=== PATIENT | female | born 1930 | race Caucasian/White ===

== ENCOUNTER 2016-12-07 19:23 | Emergency (ER) | payer MEDICARE, OTHER ==
[~2016-12-07] VITALS: Ht 160 cm; Wt 66.2 kg
[~2016-12-07 19:23] MED LIST: ALPR0.5T PO; LEVO75TA5 PO; LIOT5TAB3 PO; LOSA100T6 PO
[2016-12-07 20:35] LABS: BASO % 1 % (0-3); EOS % 1 % (0-3); HEMATOCRIT 36.2 % (36.0-47.0); HEMOGLOBIN 12.2 g/dL (12.0-15.5); LYMPH # 1.6 x10^3/uL (1.0-4.8); LYMPH % 24 % (24-48); MEAN CORPUSCULAR HEMOGLOBIN 29 pg (25-35); MEAN CORPUSCULAR HGB CONC 34 g/dL (31-37); MEAN CORPUSCULAR VOLUME 85 fL (79-100); MONO % 7 % (0-9); NEUT % 67 % (31-73); PLATELET COUNT 237 x10^3/uL (140-400); RED BLOOD COUNT 4.27 x10^6/uL (3.50-5.40); RED CELL DISTRIBUTION WIDTH 13.7 % (11.5-14.5); WHITE BLOOD COUNT 6.8 x10^3/uL (4.0-11.0)
--- NOTE | 2016-12-07 20:35 | PHYS DOC ---
Past Medical History Past Medical History: Arthritis, Cancer, DVT, Hypertension, Hypothyroid, Other Additional Past Medical Histor: non-hodgkins lymphoma; shingles Past Surgical History: Knee Replacement, Tonsillectomy, Other Additional Past Surgical Histo: thyroidectomy; IVC filter; back; L KNEE REPLACEMENT Alcohol Use: None Drug Use: None Adult General Chief Complaint Chief Complaint: WEAKNESS/GENERALIZED HPI HPI 78-year-old female presenting to the emergency department today with a cough for the past 3-4 weeks generalized fatigue. She denies fever or chills. She also complains of generalized weakness and lightheadedness. Location lungs. Duration intermittent. No alleviating factors. She denies polyuria dysuria confusion cyanosis. She reports a white thick sputum production. She has a history of DVT status post IVC filter placement. She also has a history of non- Hodgkin's lymphoma. Review of systems is negative for chest pain abdominal pain nausea vomiting diaphoresis. All other review of systems is negative unless otherwise noted in history of present illness. Review of Systems Review of Systems SEE ABOVE. Allergies Allergies Allergies Coded Allergies Type Severity Reaction Last Updated Verified niacin Allergy Intermediate 11/04/15 Yes Physical Exam Physical Exam Constitutional: Well developed, well nourished, no acute distress, non-toxic appearance. HENT: Normocephalic, atraumatic, bilateral external ears normal, oropharynx moist, no oral exudates, nose normal. [] Eyes: PERRLA, EOMI, conjunctiva normal, no discharge. [] Neck: Normal range of motion, no tenderness, supple, no stridor. Cardiovascular:Heart rate regular rhythm, no murmur [] Lungs & Thorax: Bilateral breath sounds clear to auscultation Abdomen: Bowel sounds normal, soft, no tenderness, no masses, no pulsatile masses. [] Skin: Warm, dry, no erythema, no rash. [] Back: No tenderness, no CVA tenderness. Extremities: No tenderness, no cyanosis, no clubbing, ROM intact, no edema. [] Neurologic: Alert and oriented X 3, normal motor function, normal sensory function, no focal deficits noted. Psychologic: Affect normal, judgement normal, mood normal. [] Current Patient Data Vital Signs Vital Signs Date Time Temp Pulse Resp B/P (MAP) Pulse Ox O2 Delivery O2 Flow Rate FiO2 12/07/16 19:40 98.3 83 18 153/74 (100) 93 Room Air 98.3 EKG EKG [] Radiology/Procedures Radiology/Procedures [] Course & Med Decision Making Course & Med Decision Making Pertinent Labs and Imaging studies reviewed. (See chart for details) [] 86-year-old female presenting to the emergency department today with generalized fatigue and weakness and cough. Vital signs afebrile, normal heart rate. Saturating 93% on room air. She was saturating 95% during my examination on room air. EKG and chest x-ray ordered along with blood work. No this had come back prior to the patient being signed out to Dr. Merritt at 9 PM. Plan to follow-up on labs EKG chest x-ray and reevaluate the patient. Dragon Disclaimer Dragon Disclaimer This electronic medical record was generated, in whole or in part, using a voice recognition dictation system. Departure Departure Impression: Primary Impression: Cough Referrals: EVY SMITH MD (PCP) SOTERO JAMES MD December 07, 2016 20:35
[2016-12-07 20:37] LABS: BILIRUBIN,URINE NEGATIVE (NEG); GLUCOSE,URINE NEGATIVE (NEG); NITRITE,URINE NEGATIVE (NEG); PH,URINE 6.5; PROTEIN,URINE NEGATIVE (NEG-TRACE); UROBILINOGEN,URINE 0.2 mg/dL (0.2 mg/dL)
[2016-12-07 20:44] LABS: BACTERIA,URINE 0 /HPF (0-FEW); RBC,URINE OCC /HPF (0-2); SQUAMOUS EPITHELIAL CELL,UR OCC /LPF; WBC,URINE 0 /HPF (0-4)
[2016-12-07 20:49] LABS: CALCIUM 8.7 mg/dL (8.5-10.1); CREATININE 0.8 mg/dL (0.6-1.0); GFR 67.7; POTASSIUM 4.2 mmol/L (3.5-5.1)
[2016-12-07 20:55] LABS: ALBUMIN 3.8 g/dL (3.4-5.0); DIRECT BILIRUBIN 0.1 mg/dL (0.0-0.2); TOTAL BILIRUBIN 0.4 mg/dL (0.2-1.0); TOTAL PROTEIN 6.9 g/dL (6.4-8.2)
[2016-12-07 21:30] VITALS: BP 159/74
--- NOTE | 2016-12-08 07:45 | RAD ---
Indication weakness. Shortness of breath. A single view of the chest was obtained and is compared to an examination 13 months earlier. Heart size and pulmonary vessels are within normal limits. A focal infiltrate in either lung is not seen. Significant pleural fluid is not present and there is no pneumothorax. Overall there has not been a significant change when compared to the previous exam. Advanced degenerative changes about both shoulders are noted, similar. IMPRESSION: No acute finding. No significant change
== END 2016-12-07 22:06 | disposition home or self-care (01) ==
LOC: ER 19:23
DX: R05 Cough (principal); R53.1 Weakness; M19.90 Unspecified osteoarthritis, unspecified site; E03.9 Hypothyroidism, unspecified; I10 Essential (primary) hypertension; Z86.718 Personal history of other venous thrombosis and embolism; Z88.1 Allergy status to other antibiotic agents
CPT/HCPCS: 36415; 71010; 80048; 80076; 81001; 83605; 83690; 83880; 84484; 85027; 99285-25

== ENCOUNTER 2017-04-16 11:02 | Inpatient (IN) | payer MEDICARE, OTHER ==
[~2017-04-16] VITALS: Ht 160 cm; Wt 66.2 kg
[2017-04-16] MEDS ORDERED: fentaNYL PF VIAL 100 MCG/2 ML VIAL IV ONE (11:30)
--- NOTE | 2017-04-16 11:37 | PHYS DOC ---
Past Medical History Past Medical History: Arthritis, Cancer, DVT, Hypertension, Hypothyroid, Other Additional Past Medical Histor: non-hodgkins lymphoma; shingles Past Surgical History: Knee Replacement, Tonsillectomy, Other Additional Past Surgical Histo: thyroidectomy; IVC filter; back; L KNEE REPLACEMENT Alcohol Use: None Drug Use: None Adult General Chief Complaint Chief Complaint: MECHANICAL FALL HPI HPI Patient is a 86 year old female who presents with left shoulder pain after stumbling backwards and falling. She was walking with her walker when it occurred. She denies hitting her head or having loss of consciousness. Her pain is localized to the left shoulder. Denies blood thinners. no n/v/blurry vision or headache. Denies back pain, pt was ambulatory after fall without difficulty. Review of Systems Review of Systems Constitutional: Denies fever or chills [] Eyes: Denies change in visual acuity, redness, or eye pain [] HENT: Denies nasal congestion or sore throat [] Respiratory: Denies cough or shortness of breath [] Cardiovascular: denies chest pain GI: Denies abdominal pain, nausea, vomiting, bloody stools or diarrhea [] : Denies dysuria or hematuria [] Musculoskeletal: Denies back pain , reports left upper extremity pain Integument: Denies rash or skin lesions [] Neurologic: Denies headache, focal weakness or sensory changes [] ] Current Medications Current Medications Current Medications Medications (Trade) Dose Ordered Sig/Silvano Start Time Stop Time Status Last Admin Dose Admin Fentanyl Citrate (Fentanyl 2ml Vial) 50 mcg 1X ONCE 04/16/17 11:30 04/16/17 11:31 DC 04/16/17 11:40 50 MCG Physical Exam Physical Exam Constitutional: Well developed, well nourished, no acute distress, non-toxic appearance. elderly, pleasant HENT: Normocephalic, atraumatic, bilateral external ears normal, oropharynx moist, no oral exudates, nose normal. [] Eyes: PERRLA, EOMI, conjunctiva normal, no discharge. [] Neck: Normal range of motion, no tenderness, supple, no stridor. [] Cardiovascular:Heart rate regular with regular rhythm, no murmur [] Lungs & Thorax: Bilateral breath sounds clear to auscultation, no wheeze or crackles Abdomen: Bowel sounds normal, soft, no tenderness, no masses, no pulsatile masses. [] Skin: Warm, dry, no erythema, no rash. [] Back: No midline stepoffs or tenderness, no CVA tenderness. [] Extremities: LUE with deformity of the shoulder with swelling overlying humerus and generalized proximal ttp of the upper arm. Deltoid sensory intact, no ttp of the elbow, limited ROM 2/2 to pain, radial pulse intact and FROM of the hand with normal distal sensory. No tenting of the skin, which is completely intact. Remaining extremities nontender/nondeformed. Neurologic: Alert and oriented X 3, normal motor function, normal sensory function, no focal deficits noted. [] Psychologic: Affect normal, judgement normal, mood normal. [] Current Patient Data Vital Signs Vital Signs Date Time Temp Pulse Resp B/P (MAP) Pulse Ox O2 Delivery O2 Flow Rate FiO2 04/16/17 13:20 97 19 152/74 (100) 96 Room Air 04/16/17 11:04 98.2 98.2 EKG EKG [] Radiology/Procedures Radiology/Procedures []LUE/shoulder XRay: History: Fall, pain There is a spiral fracture of the proximal to mid left humeral shaft. There is considerable lateral displacement of the distal fracture fragment. There are severe degenerative changes at the left shoulder with spurring, a high riding humeral head and periarticular calcifications. These findings appear to be chronic and were also evident on previous chest radiographs. IMPRESSION: 1. Displaced fracture of the proximal to mid left humerus. 2. Severe degenerative change at the left shoulder joint. Course & Med Decision Making Course & Med Decision Making Pertinent Labs and Imaging studies reviewed. (See chart for details) Pt given pain medication after initially declining. Pt's XRay reviewed by me shows significant midshaft humerus fracture with possible anterior dislocation of the shoulder. I discussed with Dr. Penaloza and Dr. Richey, and a CT was ordered. As pt uses a walker to ambulate and won't be able to do so, I proceeded with admission at that time. Prior to CT, did not place pt in sling as she stated she felt comfortable in the current position. I transferred care to Dr. Frederick prior to CT being performed. Pt reports her pain is well controlled. Dragon Disclaimer Dragon Disclaimer This electronic medical record was generated, in whole or in part, using a voice recognition dictation system. Departure Departure Impression: Primary Impression: Humerus fracture Disposition: ADMITTED INPATIENT Admitting Physician: Brad Frederick Condition: IMPROVED Referrals: EVY SMITH MD (PCP) JESSICA MCGARRY MD Apr 16, 2017 11:37
--- NOTE | 2017-04-16 11:50 | RAD ---
Left shoulder, 3 views, 04/16/2017: History: Fall, pain There is a spiral fracture of the proximal to mid left humeral shaft. There is considerable lateral displacement of the distal fracture fragment. There are severe degenerative changes at the left shoulder with spurring, a high riding humeral head and periarticular calcifications. These findings appear to be chronic and were also evident on previous chest radiographs. IMPRESSION: 1. Displaced fracture of the proximal to mid left humerus. 2. Severe degenerative change at the left shoulder joint.
[2017-04-16] MEDS ORDERED: MORPHINE SULFATE 4 MG/ML DISP.SYRIN. IV ONE (13:45)
[2017-04-16 14:01] LABS: BASO % 1 % (0-3); EOS % 0 % (0-3); HEMATOCRIT 33.7 % (36.0-47.0); HEMOGLOBIN 11.5 g/dL (12.0-15.5); LYMPH # 0.6 x10^3/uL (1.0-4.8); LYMPH % 8 % (24-48); MEAN CORPUSCULAR HEMOGLOBIN 29 pg (25-35); MEAN CORPUSCULAR HGB CONC 34 g/dL (31-37); MEAN CORPUSCULAR VOLUME 84 fL (79-100); MONO % 5 % (0-9); NEUT % 86 % (31-73); PLATELET COUNT 217 x10^3/uL (140-400); RED BLOOD COUNT 3.99 x10^6/uL (3.50-5.40); RED CELL DISTRIBUTION WIDTH 13.9 % (11.5-14.5); WHITE BLOOD COUNT 7.5 x10^3/uL (4.0-11.0)
[2017-04-16 14:10] LABS: CALCIUM 8.8 mg/dL (8.5-10.1); CREATININE 0.5 mg/dL (0.6-1.0); GFR 116.4; POTASSIUM 3.7 mmol/L (3.5-5.1)
[2017-04-16 14:16] LABS: ALBUMIN 3.6 g/dL (3.4-5.0); ALBUMIN/GLOBULIN RATIO 1.2 (1.0-1.7); TOTAL BILIRUBIN 0.5 mg/dL (0.2-1.0); TOTAL PROTEIN 6.6 g/dL (6.4-8.2)
--- NOTE | 2017-04-16 14:51 | RAD ---
CT left shoulder Indication: Injury with abnormal joint. Technique: CT of the left shoulder without IV contrast with multiplanar reformats. Comparison: Plain film from the same day Findings: There is complete laterally angulated fracture of the mid left humeral diaphysis with overlapping fracture fragments. Nondisplaced fracture is seen through the proximal fracture fragment extending to the metaphysis. There is severe flattening of the humeral head and glenoid fossa with subchondral sclerosis and cyst formation. There is superior subluxation of the humeral head with remodeling of the acromion. Resumption of the distal left clavicle noted. Suggestion of type 3 acromion. There is severe atrophy of the rotator cuff muscles. Thickening of the joint capsule with scattered calcifications. Inflammatory changes is seen in the soft tissues at the fracture site. Visualized lungs are clear. Heart is normal in size. Coronary artery disease noted. No pericardial or pleural effusion. Aortic arch calcifications noted. 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 No suspicious bony lesions. Multilevel moderate to advanced degenerative disc disease in the spine. Impression: 1. Complete displaced angulated fracture of the mid diaphysis of the left humerus. 2. Second subtle nondisplaced fracture of the proximal humerus extending to the metadiaphysis. 3. Severe degenerative changes in the shoulder joint most likely sequelae of chronic rotator cuff pathology. PQRS Compliance Statement: One or more of the following individualized dose reduction techniques were utilized for this examination: 1. Automated exposure control 2. Adjustment of the mA and/or kV according to patient size 3. Use of iterative reconstruction technique
[2017-04-16 16:45] VITALS: BP 116/80
[2017-04-16] MEDS: MORPHINE SULFATE 4 MG/ML DISP.SYRIN. IV PRN ×2 (16:59→21:52)
--- NOTE | 2017-04-16 17:00 | PDOC1 ---
History and Physical Date of Admission Date of Admission 04/17/17 Identification/Chief Complaint Chief Complaint fall Problems: Source Source: Caregiver, Chart review, Patient History of Present Illness History of Present Illness HPI HPI Patient is a 86 year old female who presents with left shoulder pain after fall today. Pt has bad hearing. her daughter helps for the history. Pt lives alone, independent, using a walker. Today she was ellis, she was not sure if she stumble or now, but fell at the bathroom door on left shoulder, wo lost of consciousness. sent to ER since cannot move left arm with pain. She cannot move left arm much usually with frozen shoulder. no N/V, fever, chills, cough, chest pain. CT : Impression: 1. Complete displaced angulated fracture of the mid diaphysis of the left humerus. 2. Second subtle nondisplaced fracture of the proximal humerus extending to the metadiaphysis. 3. Severe degenerative changes in the shoulder joint most likely sequelae of chronic rotator cuff pathology. Past Medical History Cardiovascular: HTN Endocrine: Hypothyroidism Past Surgical History Past Surgical History: Total knee replacement Social History Smoke: No ALCOHOL: none Drugs: None Current Medications Current Medications Current Medications Medications (Trade) Dose Ordered Sig/Silvano Start Time Stop Time Status Last Admin Dose Admin Fentanyl Citrate (Fentanyl 2ml Vial) 50 mcg 1X ONCE 04/16/17 11:30 04/16/17 11:31 DC 04/16/17 11:40 50 MCG Morphine Sulfate 2 mg PRN Q2HR PRN 04/16/17 14:15 04/17/17 14:14 04/16/17 16:59 2 MG Allergies Allergies Allergies Coded Allergies Type Severity Reaction Last Updated Verified niacin Allergy Intermediate 11/04/15 Yes ROS Review of System CONSTITUTIONAL: No fever or chills EYES: No recent changes SKIN: No rash or itching CARDIOVASCULAR: No chest pain, syncope, palpitations, or edema RESPIRATORY: No SOB or cough GASTROINTESTINAL: No nausea, vomiting or abdominal pain NEUROLOGICAL: No headaches or weakness ENDOCRINE: No cold or heat intolerance GENITOURINARY: No urgency or frequency of urination MUSCULOSKELETAL: No back pain or joint pain LYMPHATICS: No enlarged lymph nodes PSYCHIATRIC: No anxiety or depression Physical Exam Physical Exam GEN.: No apparent distress. Alert and oriented. HEENT: Head is normocephalic, atraumatic NECK: Supple. LUNGS: Clear to auscultation. HEART: RRR, S1, S2 present. Peripheral pulses intact ABDOMEN: Soft, nontender. Positive bowel sounds. EXTREMITIES: Without any cyanosis. left shoulder bruise, swelling, tender , can move left hand and fingers, warm. NEUROLOGIC: Normal speech, normal tone PSYCHIATRIC: Normal affect, normal mood. SKIN: No ulcerations Vitals Vitals Vital Signs Date Time Temp Pulse Resp B/P (MAP) Pulse Ox O2 Delivery O2 Flow Rate FiO2 04/16/17 16:59 16 Room Air 04/16/17 16:16 95 152/80 (104) 96 04/16/17 11:04 98.2 98.2 Labs Labs Laboratory Tests Test 04/16/17 13:50 White Blood Count 7.5 x10^3/uL (4.0-11.0) Red Blood Count 3.99 x10^6/uL (3.50-5.40) Hemoglobin 11.5 g/dL (12.0-15.5) Hematocrit 33.7 % (36.0-47.0) Mean Corpuscular Volume 84 fL (79-100) Mean Corpuscular Hemoglobin 29 pg (25-35) Mean Corpuscular Hemoglobin Concent 34 g/dL (31-37) Red Cell Distribution Width 13.9 % (11.5-14.5) Platelet Count 217 x10^3/uL (140-400) Neutrophils (%) (Auto) 86 % (31-73) Lymphocytes (%) (Auto) 8 % (24-48) Monocytes (%) (Auto) 5 % (0-9) Eosinophils (%) (Auto) 0 % (0-3) Basophils (%) (Auto) 1 % (0-3) Neutrophils # (Auto) 6.5 x10^3uL (1.8-7.7) Lymphocytes # (Auto) 0.6 x10^3/uL (1.0-4.8) Monocytes # (Auto) 0.4 x10^3/uL (0.0-1.1) Eosinophils # (Auto) 0.0 x10^3/uL (0.0-0.7) Basophils # (Auto) 0.0 x10^3/uL (0.0-0.2) Sodium Level 135 mmol/L (136-145) Potassium Level 3.7 mmol/L (3.5-5.1) Chloride Level 100 mmol/L (98-107) Carbon Dioxide Level 26 mmol/L (21-32) Anion Gap 9 (6-14) Blood Urea Nitrogen 15 mg/dL (7-20) Creatinine 0.5 mg/dL (0.6-1.0) Estimated GFR (Cockcroft-Gault) 116.4 BUN/Creatinine Ratio 30 (6-20) Glucose Level 125 mg/dL (70-99) Calcium Level 8.8 mg/dL (8.5-10.1) Total Bilirubin 0.5 mg/dL (0.2-1.0) Aspartate Amino Transf (AST/SGOT) 22 U/L (15-37) Alanine Aminotransferase (ALT/SGPT) 13 U/L (14-59) Alkaline Phosphatase 89 U/L (46-116) Total Protein 6.6 g/dL (6.4-8.2) Albumin 3.6 g/dL (3.4-5.0) Albumin/Globulin Ratio 1.2 (1.0-1.7) Laboratory Tests Test 04/16/17 13:50 White Blood Count 7.5 x10^3/uL (4.0-11.0) Red Blood Count 3.99 x10^6/uL (3.50-5.40) Hemoglobin 11.5 g/dL (12.0-15.5) Hematocrit 33.7 % (36.0-47.0) Mean Corpuscular Volume 84 fL (79-100) Mean Corpuscular Hemoglobin 29 pg (25-35) Mean Corpuscular Hemoglobin Concent 34 g/dL (31-37) Red Cell Distribution Width 13.9 % (11.5-14.5) Platelet Count 217 x10^3/uL (140-400) Neutrophils (%) (Auto) 86 % (31-73) Lymphocytes (%) (Auto) 8 % (24-48) Monocytes (%) (Auto) 5 % (0-9) Eosinophils (%) (Auto) 0 % (0-3) Basophils (%) (Auto) 1 % (0-3) Neutrophils # (Auto) 6.5 x10^3uL (1.8-7.7) Lymphocytes # (Auto) 0.6 x10^3/uL (1.0-4.8) Monocytes # (Auto) 0.4 x10^3/uL (0.0-1.1) Eosinophils # (Auto) 0.0 x10^3/uL (0.0-0.7) Basophils # (Auto) 0.0 x10^3/uL (0.0-0.2) Sodium Level 135 mmol/L (136-145) Potassium Level 3.7 mmol/L (3.5-5.1) Chloride Level 100 mmol/L (98-107) Carbon Dioxide Level 26 mmol/L (21-32) Anion Gap 9 (6-14) Blood Urea Nitrogen 15 mg/dL (7-20) Creatinine 0.5 mg/dL (0.6-1.0) Estimated GFR (Cockcroft-Gault) 116.4 BUN/Creatinine Ratio 30 (6-20) Glucose Level 125 mg/dL (70-99) Calcium Level 8.8 mg/dL (8.5-10.1) Total Bilirubin 0.5 mg/dL (0.2-1.0) Aspartate Amino Transf (AST/SGOT) 22 U/L (15-37) Alanine Aminotransferase (ALT/SGPT) 13 U/L (14-59) Alkaline Phosphatase 89 U/L (46-116) Total Protein 6.6 g/dL (6.4-8.2) Albumin 3.6 g/dL (3.4-5.0) Albumin/Globulin Ratio 1.2 (1.0-1.7) VTE Prophylaxis Ordered VTE Prophylaxis Devices: Yes VTE Pharmacological Prophylaxi: Yes Assessment/Plan Assessment/Plan left shoulder traumatic displaced humerus fx htn hypothyroidism post thyroidectomy non hodgkins lymphoma, stable h/o DVT no AC OA h/o IVC filter valve dz, likely , stable plan: fu with ortho, likely needs sx no contraindication for sx, low-moderate risk for post sx complication cont home meds when able to take po npo waiting for sx eval check vitd dvt ppx post sx PTOT post sx HENRY SOTO MD Apr 16, 2017 17:00
[2017-04-16] MEDS ORDERED: traMADol 50 MG TABLET PO PRN (17:15)
[2017-04-16] MEDS ORDERED: hydrALAZINE 20 MG/ML VIAL. IVP PRN (17:15)
[2017-04-16] MEDS ORDERED: ONDANSETRON PF 4 MG/2 ML VIAL. IV PRN (17:15)
[2017-04-16] MEDS ORDERED: ACETAMINOPHEN 325 MG TABLET. PO PRN (17:15)
[2017-04-16] MEDS ORDERED: FLUO15CR TP (17:34)
[2017-04-16] MEDS: HYDROcodone/APAP 5/325MG 1 TAB TABLET PO PRN ×2 (17:59→21:43)
[2017-04-16 19:51] VITALS: BP 101/55
[2017-04-16 20:01] LABS: BILIRUBIN,URINE NEGATIVE (NEG); GLUCOSE,URINE NEGATIVE (NEG); NITRITE,URINE NEGATIVE (NEG); PH,URINE 6.5; PROTEIN,URINE NEGATIVE (NEG-TRACE); UROBILINOGEN,URINE 0.2 mg/dL (0.2 mg/dL)
[2017-04-16 20:20] LABS: BACTERIA,URINE FEW /HPF (0-FEW); RBC,URINE OCC /HPF (0-2); SQUAMOUS EPITHELIAL CELL,UR FEW /LPF; WBC,URINE OCC /HPF (0-4)
--- NOTE | 2017-04-16 21:01 | PDOC2 ---
CONSULT Date of Consult Date of Consult DATE: 04/16/17 TIME: 20:50 Reason for Consult Reason for Consult: left humerus fracture Identification/Chief Complaint Chief Complaint left arm pain, status post fall Problems: (1) Humerus fracture Source Source: Caregiver, Chart review, Patient History of Present Illness Reason for Visit: The patient is an 86 year old right-hand dominant female who lives alone that fell earlier today when she stumbled using her walker. Did not hit her head, no loss of consciousness. 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 She is not on any anticoagulation. I spoke with her daughter who lives one block from her. She stated that her mother is very independent and lives alone. She is active still, and is dependent on a walker for ambulation. Past Medical History Cardiovascular: HTN, Aortic stenosis Heme/Onc: Cancer (NHL) Endocrine: Hypothyroidism Past Surgical History Past Surgical History: Total knee replacement Family History Family History noncontributory Social History No ALCOHOL: none Drugs: None Lives: Alone Current Medications Current Medications Current Medications Fentanyl Citrate (Fentanyl 2ml Vial) 50 mcg 1X ONCE IV Last administered on 11:40; Start 04/16/17 at 11:30; Stop 04/16/17 at 11:31; Status DC Morphine Sulfate 2 mg 1X ONCE IV Last administered on 04/16/17 13:55; Start 04/16/17 at 13:45; Stop 04/16/17 at 13:46; Status DC Morphine Sulfate 2 mg PRN Q2HR PRN IV PAIN Last administered on 04/16/17 16:59 ; Start 04/16/17 at 14:15; Stop 04/17/17 at 14:14 Alprazolam (Xanax) 0.5 mg QHS PO ; Start 04/16/17 at 21:00 Levothyroxine Sodium (Synthroid) 75 mcg DAILYAC PO ; Start 04/17/17 at 07:30 Liothyronine Sodium (Cytomel) 5 mcg DAILY PO ; Start 04/17/17 at 09:00 Losartan Potassium (Cozaar) 100 mg DAILY PO ; Start 04/17/17 at 09:00 Acetaminophen (Tylenol) 650 mg PRN Q6HRS PRN PO FEVER; Start 04/16/17 at 17:15 Ondansetron HCl (Zofran) 4 mg PRN Q6HRS PRN IV NAUSEA/VOMITING; Start 04/16/17 at 17:15 Morphine Sulfate 2 mg PRN Q2HR PRN IV PAIN; Start 04/16/17 at 17:15 Tramadol HCl (Ultram) 50 mg PRN Q6HRS PRN PO PAIN; Start 04/16/17 at 17:15 Hydralazine HCl (Apresoline) 10 mg PRN Q4HRS PRN IVP ELEVATED BP, SEE COMMENTS ; Start 04/16/17 at 17:15 Docusate Sodium (Colace) 100 mg PRN DAILY PRN PO CONSTIPATION; Start 04/16/17 at 17:15 Acetaminophen/ Hydrocodone Bitart (Lortab 5/325) 1 tab PRN Q6HRS PRN PO PAIN MILD TO MOD Last administered on 04/16/17t 17:59; Start 04/16/17 at 18:00 Active Scripts Active Reported Fluocinonide 15 Gm Cream..g. 1 Yana TP BID Liothyronine Sodium 5 Mcg Tablet 5 Mcg PO Levothyroxine Sodium 75 Mcg Tablet 75 Mcg PO DAILYAC Losartan Potassium 100 Mg Tablet 100 Mg PO DAILY Xanax (Alprazolam) 0.5 Mg Tablet 1 Tab PO QHS Allergies Allergies: Coded Allergies: niacin (Verified Allergy, Intermediate, 11/04/15) ROS General: No: Chills, Night Sweats, Fatigue, Malaise, Appetite, Other Musculoskeletal: Yes Joint Pain, Yes Joint Stiffness, Yes Joint Swelling Physical Exam General: Alert, Oriented X3, Cooperative, No acute distress HEENT: Atraumatic Lungs: Normal air movement Heart: Regular rate Extremities: No clubbing, No cyanosis, Normal pulses MUSCULOSKELETAL: Other (left arm with gross deformity and swelling. +epl/fpl/we /ff/interosseous. 2+ radial pulse) Vitals VITALS Vital Signs Date Time Temp Pulse Resp B/P (MAP) Pulse Ox O2 Delivery O2 Flow Rate FiO2 04/16/17 19:51 98.2 93 18 101/55 (70) 93 Room Air 98.2 Labs Labs Laboratory Tests Test 04/16/17 13:50 04/16/17 18:40 White Blood Count 7.5 x10^3/uL (4.0-11.0) Red Blood Count 3.99 x10^6/uL (3.50-5.40) Hemoglobin 11.5 g/dL (12.0-15.5) Hematocrit 33.7 % (36.0-47.0) Mean Corpuscular Volume 84 fL (79-100) Mean Corpuscular Hemoglobin 29 pg (25-35) Mean Corpuscular Hemoglobin Concent 34 g/dL (31-37) Red Cell Distribution Width 13.9 % (11.5-14.5) Platelet Count 217 x10^3/uL (140-400) Neutrophils (%) (Auto) 86 % (31-73) Lymphocytes (%) (Auto) 8 % (24-48) Monocytes (%) (Auto) 5 % (0-9) Eosinophils (%) (Auto) 0 % (0-3) Basophils (%) (Auto) 1 % (0-3) Neutrophils # (Auto) 6.5 x10^3uL (1.8-7.7) Lymphocytes # (Auto) 0.6 x10^3/uL (1.0-4.8) Monocytes # (Auto) 0.4 x10^3/uL (0.0-1.1) Eosinophils # (Auto) 0.0 x10^3/uL (0.0-0.7) Basophils # (Auto) 0.0 x10^3/uL (0.0-0.2) Sodium Level 135 mmol/L (136-145) Potassium Level 3.7 mmol/L (3.5-5.1) Chloride Level 100 mmol/L (98-107) Carbon Dioxide Level 26 mmol/L (21-32) Anion Gap 9 (6-14) Blood Urea Nitrogen 15 mg/dL (7-20) Creatinine 0.5 mg/dL (0.6-1.0) Estimated GFR (Cockcroft-Gault) 116.4 BUN/Creatinine Ratio 30 (6-20) Glucose Level 125 mg/dL (70-99) Calcium Level 8.8 mg/dL (8.5-10.1) Total Bilirubin 0.5 mg/dL (0.2-1.0) Aspartate Amino Transf (AST/SGOT) 22 U/L (15-37) Alanine Aminotransferase (ALT/SGPT) 13 U/L (14-59) Alkaline Phosphatase 89 U/L (46-116) Total Protein 6.6 g/dL (6.4-8.2) Albumin 3.6 g/dL (3.4-5.0) Albumin/Globulin Ratio 1.2 (1.0-1.7) Urine Collection Type Unknown Urine Color Yellow Urine Clarity Clear Urine pH 6.5 Urine Specific [place] 1.020 Urine Protein Negative mg/dL (NEG-TRACE) Urine Glucose (UA) Negative mg/dL (NEG) Urine Ketones (Stick) Trace mg/dL (NEG) Urine Blood Negative (NEG) Urine Nitrite Negative (NEG) Urine Bilirubin Negative (NEG) Urine Urobilinogen Dipstick 0.2 mg/dL (0.2 mg/dL) Urine Leukocyte Esterase Negative (NEG) Urine RBC Occ /HPF (0-2) Urine WBC Occ /HPF (0-4) Urine Squamous Epithelial Cells Few /LPF Urine Bacteria Few /HPF (0-FEW) Urine Hyaline Casts Few /HPF Laboratory Tests Test 04/16/17 13:50 04/16/17 18:40 White Blood Count 7.5 x10^3/uL (4.0-11.0) Red Blood Count 3.99 x10^6/uL (3.50-5.40) Hemoglobin 11.5 g/dL (12.0-15.5) Hematocrit 33.7 % (36.0-47.0) Mean Corpuscular Volume 84 fL (79-100) Mean Corpuscular Hemoglobin 29 pg (25-35) Mean Corpuscular Hemoglobin Concent 34 g/dL (31-37) Red Cell Distribution Width 13.9 % (11.5-14.5) Platelet Count 217 x10^3/uL (140-400) Neutrophils (%) (Auto) 86 % (31-73) Lymphocytes (%) (Auto) 8 % (24-48) Monocytes (%) (Auto) 5 % (0-9) Eosinophils (%) (Auto) 0 % (0-3) Basophils (%) (Auto) 1 % (0-3) Neutrophils # (Auto) 6.5 x10^3uL (1.8-7.7) Lymphocytes # (Auto) 0.6 x10^3/uL (1.0-4.8) Monocytes # (Auto) 0.4 x10^3/uL (0.0-1.1) Eosinophils # (Auto) 0.0 x10^3/uL (0.0-0.7) Basophils # (Auto) 0.0 x10^3/uL (0.0-0.2) Sodium Level 135 mmol/L (136-145) Potassium Level 3.7 mmol/L (3.5-5.1) Chloride Level 100 mmol/L (98-107) Carbon Dioxide Level 26 mmol/L (21-32) Anion Gap 9 (6-14) Blood Urea Nitrogen 15 mg/dL (7-20) Creatinine 0.5 mg/dL (0.6-1.0) Estimated GFR (Cockcroft-Gault) 116.4 BUN/Creatinine Ratio 30 (6-20) Glucose Level 125 mg/dL (70-99) Calcium Level 8.8 mg/dL (8.5-10.1) Total Bilirubin 0.5 mg/dL (0.2-1.0) Aspartate Amino Transf (AST/SGOT) 22 U/L (15-37) Alanine Aminotransferase (ALT/SGPT) 13 U/L (14-59) Alkaline Phosphatase 89 U/L (46-116) Total Protein 6.6 g/dL (6.4-8.2) Albumin 3.6 g/dL (3.4-5.0) Albumin/Globulin Ratio 1.2 (1.0-1.7) Urine Collection Type Unknown Urine Color Yellow Urine Clarity Clear Urine pH 6.5 Urine Specific [place] 1.020 Urine Protein Negative mg/dL (NEG-TRACE) Urine Glucose (UA) Negative mg/dL (NEG) Urine Ketones (Stick) Trace mg/dL (NEG) Urine Blood Negative (NEG) Urine Nitrite Negative (NEG) Urine Bilirubin Negative (NEG) Urine Urobilinogen Dipstick 0.2 mg/dL (0.2 mg/dL) Urine Leukocyte Esterase Negative (NEG) Urine RBC Occ /HPF (0-2) Urine WBC Occ /HPF (0-4) Urine Squamous Epithelial Cells Few /LPF Urine Bacteria Few /HPF (0-FEW) Urine Hyaline Casts Few /HPF Images Images Xrays and Ct scan of the left humerus reveal a significantly displaced oblique humeral shaft fracture that extends into a nondisplaced proximal humerus fracture. Assessment/Plan Assessment/Plan The patient is an 86 year old right-hand dominant female who lives independently and depends on a walker for ambulation. I spoke with her and her daughter discussing nonoperative versus operative treatment of her left humerus fracture. The risks of surgery including the risk of undergoing anesthesia, bleeding, infection, nerve damage, malunion, and nonunion, and blood clots were discussed at length. The benefits of surgery including pain relief and functional improvement of the left arm were also discussed. We also discussed the postoperative course of immobilization, weight restrictions, and physical therapy required after surgery. After surgical fixation she should be able to bear weight on the arm to use a walker for ambulation. After a thorough discussion of the risks and benefits of an open reduction internal fixation of the left humerus fracture the patient elected to proceed with surgery. The patient exhibited understanding of the risks and benefits of surgery, and all questions were answered. We will plan for surgery tomorrow pm around 4. She has already been cleared by surgery. She can eat breakfast in the am, and then will be npo afterwards. VICTORIANO IVY MD Apr 16, 2017 21:01
[2017-04-16] MEDS: ALPRAZolam 0.5 MG TABLET PO SCH (21:42)
[2017-04-16 23:22] VITALS: BP 102/56
[2017-04-17] VITALS (8 sets, daily range): BP systolic 100–144; BP diastolic 56–72
[2017-04-17] MEDS: MORPHINE SULFATE 4 MG/ML DISP.SYRIN. IV PRN ×4 (03:33→23:20)
[2017-04-17 05:02] LABS: BASO % 0 % (0-3); EOS % 2 % (0-3); HEMATOCRIT 29.9 % (36.0-47.0); HEMOGLOBIN 10.5 g/dL (12.0-15.5); LYMPH # 0.9 x10^3/uL (1.0-4.8); LYMPH % 25 % (24-48); MEAN CORPUSCULAR HEMOGLOBIN 30 pg (25-35); MEAN CORPUSCULAR HGB CONC 35 g/dL (31-37); MEAN CORPUSCULAR VOLUME 85 fL (79-100); MONO % 9 % (0-9); NEUT % 64 % (31-73); PLATELET COUNT 202 x10^3/uL (140-400); RED BLOOD COUNT 3.51 x10^6/uL (3.50-5.40); RED CELL DISTRIBUTION WIDTH 14.3 % (11.5-14.5); WHITE BLOOD COUNT 3.5 x10^3/uL (4.0-11.0)
[2017-04-17 05:16] LABS: CALCIUM 7.8 mg/dL (8.5-10.1); CREATININE 0.6 mg/dL (0.6-1.0); GFR 94.3; POTASSIUM 3.7 mmol/L (3.5-5.1)
[2017-04-17] MEDS: LIOTHYRONINE 5 MCG TABLET. PO SCH (08:43)
[2017-04-17] MEDS: LOSARTAN POTASSIUM 50 MG TABLET. PO SCH (08:44)
[2017-04-17] MEDS: LEVOTHYROXINE 75 MCG TABLET PO SCH (08:44)
[2017-04-17] MEDS: DOCUSATE SODIUM 100 MG CAPSULE. PO PRN (08:44)
[2017-04-17] MEDS ORDERED: fentaNYL PF VIAL 100 MCG/2 ML VIAL IV PRN (11:00)
[2017-04-17] MEDS ORDERED: ONDANSETRON PF 4 MG/2 ML VIAL. IV PRN (11:00)
[2017-04-17] MEDS ORDERED: MORPHINE SULFATE 4 MG/ML DISP.SYRIN. IV PRN (11:00)
[2017-04-17] MEDS ORDERED: PROCHLORPERAZINE 10 MG/2 ML VIAL. IV PRN (11:00)
[2017-04-17] MEDS ORDERED: HYDROmorphone 2 MG/ML VIAL IV PRN (11:00)
[2017-04-17] MEDS ORDERED: LIDOCAINE 1% PF 2 ML VIAL. ID PRN (11:00)
[2017-04-17] MEDS: IV RINGERS,LACTATED 1000ML 1,000 ML IV SCH ×2 (11:52→22:36)
--- NOTE | 2017-04-17 12:56 | PDOC ---
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, likely , stable plan: fu with ortho,sx 04/17 no contraindication for sx, low-moderate risk for post sx complication cont home meds when able to take po check vitd dvt ppx post sx PTOT post sx SW consult for rehab History of Present Illness History of Present Illness ROS: no fever, chills, sob or chest pain left shoulder pain eats ok Vitals Vitals Vital Signs Date Time Temp Pulse Resp B/P (MAP) Pulse Ox O2 Delivery O2 Flow Rate FiO2 04/17/17 12:51 93 Room Air 04/17/17 11:00 98.6 87 16 100/56 (71) 98.6 Physical Exam General: Alert, Oriented X3, Cooperative, No acute distress Heart: Regular rate Lungs: Clear Abdomen: Normal bowel sounds, Soft, No tenderness Extremities: No clubbing, No cyanosis, Normal pulses, Other (left shoulder some bruise from fall, some swelling at arm and tenderness) Labs LABS Laboratory Tests Test 04/16/17 13:50 04/16/17 18:40 04/17/17 03:55 White Blood Count 7.5 x10^3/uL (4.0-11.0) 3.5 x10^3/uL (4.0-11.0) Red Blood Count 3.99 x10^6/uL (3.50-5.40) 3.51 x10^6/uL (3.50-5.40) Hemoglobin 11.5 g/dL (12.0-15.5) 10.5 g/dL (12.0-15.5) Hematocrit 33.7 % (36.0-47.0) 29.9 % (36.0-47.0) Mean Corpuscular Volume 84 fL (79-100) 85 fL (79-100) Mean Corpuscular Hemoglobin 29 pg (25-35) 30 pg (25-35) Mean Corpuscular Hemoglobin Concent 34 g/dL (31-37) 35 g/dL (31-37) Red Cell Distribution Width 13.9 % (11.5-14.5) 14.3 % (11.5-14.5) Platelet Count 217 x10^3/uL (140-400) 202 x10^3/uL (140-400) Neutrophils (%) (Auto) 86 % (31-73) 64 % (31-73) Lymphocytes (%) (Auto) 8 % (24-48) 25 % (24-48) Monocytes (%) (Auto) 5 % (0-9) 9 % (0-9) Eosinophils (%) (Auto) 0 % (0-3) 2 % (0-3) Basophils (%) (Auto) 1 % (0-3) 0 % (0-3) Neutrophils # (Auto) 6.5 x10^3uL (1.8-7.7) 2.2 x10^3uL (1.8-7.7) Lymphocytes # (Auto) 0.6 x10^3/uL (1.0-4.8) 0.9 x10^3/uL (1.0-4.8) Monocytes # (Auto) 0.4 x10^3/uL (0.0-1.1) 0.3 x10^3/uL (0.0-1.1) Eosinophils # (Auto) 0.0 x10^3/uL (0.0-0.7) 0.1 x10^3/uL (0.0-0.7) Basophils # (Auto) 0.0 x10^3/uL (0.0-0.2) 0.0 x10^3/uL (0.0-0.2) Sodium Level 135 mmol/L (136-145) 135 mmol/L (136-145) Potassium Level 3.7 mmol/L (3.5-5.1) 3.7 mmol/L (3.5-5.1) Chloride Level 100 mmol/L (98-107) 101 mmol/L (98-107) Carbon Dioxide Level 26 mmol/L (21-32) 28 mmol/L (21-32) Anion Gap 9 (6-14) 6 (6-14) Blood Urea Nitrogen 15 mg/dL (7-20) 16 mg/dL (7-20) Creatinine 0.5 mg/dL (0.6-1.0) 0.6 mg/dL (0.6-1.0) Estimated GFR (Cockcroft-Gault) 116.4 94.3 BUN/Creatinine Ratio 30 (6-20) Glucose Level 125 mg/dL (70-99) 102 mg/dL (70-99) Calcium Level 8.8 mg/dL (8.5-10.1) 7.8 mg/dL (8.5-10.1) Total Bilirubin 0.5 mg/dL (0.2-1.0) Aspartate Amino Transf (AST/SGOT) 22 U/L (15-37) Alanine Aminotransferase (ALT/SGPT) 13 U/L (14-59) Alkaline Phosphatase 89 U/L (46-116) Total Protein 6.6 g/dL (6.4-8.2) Albumin 3.6 g/dL (3.4-5.0) Albumin/Globulin Ratio 1.2 (1.0-1.7) Urine Collection Type Unknown Urine Color Yellow Urine Clarity Clear Urine pH 6.5 Urine Specific [place] 1.020 Urine Protein Negative mg/dL (NEG-TRACE) Urine Glucose (UA) Negative mg/dL (NEG) Urine Ketones (Stick) Trace mg/dL (NEG) Urine Blood Negative (NEG) Urine Nitrite Negative (NEG) Urine Bilirubin Negative (NEG) Urine Urobilinogen Dipstick 0.2 mg/dL (0.2 mg/dL) Urine Leukocyte Esterase Negative (NEG) Urine RBC Occ /HPF (0-2) Urine WBC Occ /HPF (0-4) Urine Squamous Epithelial Cells Few /LPF Urine Bacteria Few /HPF (0-FEW) Urine Hyaline Casts Few /HPF Comment Review of Relevant I have reviewed the following items kendrick (where applicable) has been applied. Labs Laboratory Tests Test 04/16/17 13:50 04/16/17 18:40 04/17/17 03:55 White Blood Count 7.5 x10^3/uL (4.0-11.0) 3.5 x10^3/uL (4.0-11.0) Red Blood Count 3.99 x10^6/uL (3.50-5.40) 3.51 x10^6/uL (3.50-5.40) Hemoglobin 11.5 g/dL (12.0-15.5) 10.5 g/dL (12.0-15.5) Hematocrit 33.7 % (36.0-47.0) 29.9 % (36.0-47.0) Mean Corpuscular Volume 84 fL (79-100) 85 fL (79-100) Mean Corpuscular Hemoglobin 29 pg (25-35) 30 pg (25-35) Mean Corpuscular Hemoglobin Concent 34 g/dL (31-37) 35 g/dL (31-37) Red Cell Distribution Width 13.9 % (11.5-14.5) 14.3 % (11.5-14.5) Platelet Count 217 x10^3/uL (140-400) 202 x10^3/uL (140-400) Neutrophils (%) (Auto) 86 % (31-73) 64 % (31-73) Lymphocytes (%) (Auto) 8 % (24-48) 25 % (24-48) Monocytes (%) (Auto) 5 % (0-9) 9 % (0-9) Eosinophils (%) (Auto) 0 % (0-3) 2 % (0-3) Basophils (%) (Auto) 1 % (0-3) 0 % (0-3) Neutrophils # (Auto) 6.5 x10^3uL (1.8-7.7) 2.2 x10^3uL (1.8-7.7) Lymphocytes # (Auto) 0.6 x10^3/uL (1.0-4.8) 0.9 x10^3/uL (1.0-4.8) Monocytes # (Auto) 0.4 x10^3/uL (0.0-1.1) 0.3 x10^3/uL (0.0-1.1) Eosinophils # (Auto) 0.0 x10^3/uL (0.0-0.7) 0.1 x10^3/uL (0.0-0.7) Basophils # (Auto) 0.0 x10^3/uL (0.0-0.2) 0.0 x10^3/uL (0.0-0.2) Sodium Level 135 mmol/L (136-145) 135 mmol/L (136-145) Potassium Level 3.7 mmol/L (3.5-5.1) 3.7 mmol/L (3.5-5.1) Chloride Level 100 mmol/L (98-107) 101 mmol/L (98-107) Carbon Dioxide Level 26 mmol/L (21-32) 28 mmol/L (21-32) Anion Gap 9 (6-14) 6 (6-14) Blood Urea Nitrogen 15 mg/dL (7-20) 16 mg/dL (7-20) Creatinine 0.5 mg/dL (0.6-1.0) 0.6 mg/dL (0.6-1.0) Estimated GFR (Cockcroft-Gault) 116.4 94.3 BUN/Creatinine Ratio 30 (6-20) Glucose Level 125 mg/dL (70-99) 102 mg/dL (70-99) Calcium Level 8.8 mg/dL (8.5-10.1) 7.8 mg/dL (8.5-10.1) Total Bilirubin 0.5 mg/dL (0.2-1.0) Aspartate Amino Transf (AST/SGOT) 22 U/L (15-37) Alanine Aminotransferase (ALT/SGPT) 13 U/L (14-59) Alkaline Phosphatase 89 U/L (46-116) Total Protein 6.6 g/dL (6.4-8.2) Albumin 3.6 g/dL (3.4-5.0) Albumin/Globulin Ratio 1.2 (1.0-1.7) Urine Collection Type Unknown Urine Color Yellow Urine Clarity Clear Urine pH 6.5 Urine Specific [place] 1.020 Urine Protein Negative mg/dL (NEG-TRACE) Urine Glucose (UA) Negative mg/dL (NEG) Urine Ketones (Stick) Trace mg/dL (NEG) Urine Blood Negative (NEG) Urine Nitrite Negative (NEG) Urine Bilirubin Negative (NEG) Urine Urobilinogen Dipstick 0.2 mg/dL (0.2 mg/dL) Urine Leukocyte Esterase Negative (NEG) Urine RBC Occ /HPF (0-2) Urine WBC Occ /HPF (0-4) Urine Squamous Epithelial Cells Few /LPF Urine Bacteria Few /HPF (0-FEW) Urine Hyaline Casts Few /HPF Laboratory Tests Test 04/16/17 13:50 04/16/17 18:40 04/17/17 03:55 White Blood Count 7.5 x10^3/uL (4.0-11.0) 3.5 x10^3/uL (4.0-11.0) Red Blood Count 3.99 x10^6/uL (3.50-5.40) 3.51 x10^6/uL (3.50-5.40) Hemoglobin 11.5 g/dL (12.0-15.5) 10.5 g/dL (12.0-15.5) Hematocrit 33.7 % (36.0-47.0) 29.9 % (36.0-47.0) Mean Corpuscular Volume 84 fL (79-100) 85 fL (79-100) Mean Corpuscular Hemoglobin 29 pg (25-35) 30 pg (25-35) Mean Corpuscular Hemoglobin Concent 34 g/dL (31-37) 35 g/dL (31-37) Red Cell Distribution Width 13.9 % (11.5-14.5) 14.3 % (11.5-14.5) Platelet Count 217 x10^3/uL (140-400) 202 x10^3/uL (140-400) Neutrophils (%) (Auto) 86 % (31-73) 64 % (31-73) Lymphocytes (%) (Auto) 8 % (24-48) 25 % (24-48) Monocytes (%) (Auto) 5 % (0-9) 9 % (0-9) Eosinophils (%) (Auto) 0 % (0-3) 2 % (0-3) Basophils (%) (Auto) 1 % (0-3) 0 % (0-3) Neutrophils # (Auto) 6.5 x10^3uL (1.8-7.7) 2.2 x10^3uL (1.8-7.7) Lymphocytes # (Auto) 0.6 x10^3/uL (1.0-4.8) 0.9 x10^3/uL (1.0-4.8) Monocytes # (Auto) 0.4 x10^3/uL (0.0-1.1) 0.3 x10^3/uL (0.0-1.1) Eosinophils # (Auto) 0.0 x10^3/uL (0.0-0.7) 0.1 x10^3/uL (0.0-0.7) Basophils # (Auto) 0.0 x10^3/uL (0.0-0.2) 0.0 x10^3/uL (0.0-0.2) Sodium Level 135 mmol/L (136-145) 135 mmol/L (136-145) Potassium Level 3.7 mmol/L (3.5-5.1) 3.7 mmol/L (3.5-5.1) Chloride Level 100 mmol/L (98-107) 101 mmol/L (98-107) Carbon Dioxide Level 26 mmol/L (21-32) 28 mmol/L (21-32) Anion Gap 9 (6-14) 6 (6-14) Blood Urea Nitrogen 15 mg/dL (7-20) 16 mg/dL (7-20) Creatinine 0.5 mg/dL (0.6-1.0) 0.6 mg/dL (0.6-1.0) Estimated GFR (Cockcroft-Gault) 116.4 94.3 BUN/Creatinine Ratio 30 (6-20) Glucose Level 125 mg/dL (70-99) 102 mg/dL (70-99) Calcium Level 8.8 mg/dL (8.5-10.1) 7.8 mg/dL (8.5-10.1) Total Bilirubin 0.5 mg/dL (0.2-1.0) Aspartate Amino Transf (AST/SGOT) 22 U/L (15-37) Alanine Aminotransferase (ALT/SGPT) 13 U/L (14-59) Alkaline Phosphatase 89 U/L (46-116) Total Protein 6.6 g/dL (6.4-8.2) Albumin 3.6 g/dL (3.4-5.0) Albumin/Globulin Ratio 1.2 (1.0-1.7) Urine Collection Type Unknown Urine Color Yellow Urine Clarity Clear Urine pH 6.5 Urine Specific [place] 1.020 Urine Protein Negative mg/dL (NEG-TRACE) Urine Glucose (UA) Negative mg/dL (NEG) Urine Ketones (Stick) Trace mg/dL (NEG) Urine Blood Negative (NEG) Urine Nitrite Negative (NEG) Urine Bilirubin Negative (NEG) Urine Urobilinogen Dipstick 0.2 mg/dL (0.2 mg/dL) Urine Leukocyte Esterase Negative (NEG) Urine RBC Occ /HPF (0-2) Urine WBC Occ /HPF (0-4) Urine Squamous Epithelial Cells Few /LPF Urine Bacteria Few /HPF (0-FEW) Urine Hyaline Casts Few /HPF Medications Current Medications Fentanyl Citrate (Fentanyl 2ml Vial) 50 mcg 1X ONCE IV Last administered on 11:40; Start 04/16/17 at 11:30; Stop 04/16/17 at 11:31; Status DC Morphine Sulfate 2 mg 1X ONCE IV Last administered on 04/16/17 13:55; Start 04/16/17 at 13:45; Stop 04/16/17 at 13:46; Status DC Morphine Sulfate 2 mg PRN Q2HR PRN IV PAIN Last administered on 04/17/17 12:51 ; Start 04/16/17 at 14:15; Stop 04/17/17 at 14:14 Alprazolam (Xanax) 0.5 mg QHS PO Last administered on 04/16/17 21:42; Start 04/16/17 at 21:00 Levothyroxine Sodium (Synthroid) 75 mcg DAILYAC PO Last administered on 08:44; Start 04/17/17 at 07:30 Liothyronine Sodium (Cytomel) 5 mcg DAILY PO Last administered on 04/17/17 08: 43; Start 04/17/17 at 09:00 Losartan Potassium (Cozaar) 100 mg DAILY PO Last administered on 04/17/17 08: 44; Start 04/17/17 at 09:00 Acetaminophen (Tylenol) 650 mg PRN Q6HRS PRN PO FEVER; Start 04/16/17 at 17:15 Ondansetron HCl (Zofran) 4 mg PRN Q6HRS PRN IV NAUSEA/VOMITING; Start 04/16/17 at 17:15 Morphine Sulfate 2 mg PRN Q2HR PRN IV PAIN; Start 04/16/17 at 17:15 Tramadol HCl (Ultram) 50 mg PRN Q6HRS PRN PO PAIN; Start 04/16/17 at 17:15 Hydralazine HCl (Apresoline) 10 mg PRN Q4HRS PRN IVP ELEVATED BP, SEE COMMENTS ; Start 04/16/17 at 17:15 Docusate Sodium (Colace) 100 mg PRN DAILY PRN PO CONSTIPATION Last administered on 04/17/17 08:44; Start 04/16/17 at 17:15 Acetaminophen/ Hydrocodone Bitart (Lortab 5/325) 1 tab PRN Q6HRS PRN PO PAIN MILD TO MOD Last administered on 04/16/17 17:59; Start 04/16/17 at 18:00 Ondansetron HCl (Zofran) 4 mg PRN Q6HRS PRN IV NAUSEA/VOMITING; Start 04/17/17 at 11:00; Stop 04/18/17 at 10:59 Fentanyl Citrate (Fentanyl 2ml Vial) 25 mcg PRN Q5MIN PRN IV MILD PAIN; Start 04/17/17 at 11:00; Stop 04/18/17 at 10:59 Fentanyl Citrate (Fentanyl 2ml Vial) 50 mcg PRN Q5MIN PRN IV MODERATE PAIN; Start 04/17/17 at 11:00; Stop 04/18/17 at 10:59 Morphine Sulfate 1 mg PRN Q10MIN PRN IV SEVERE PAIN; Start 04/17/17 at 11:00 Ringer's Solution 1,000 ml @ 30 mls/hr Q24H IV Last administered on 04/17/17 11:52; Start 04/17/17 at 10:47; Stop 04/17/17 at 22:46 Lidocaine HCl (Xylocaine-Mpf 1% Vial) 2 ml 1X PRN PRN ID IV START; Start at 11:00; Stop 04/18/17 at 10:59 Hydromorphone HCl (Dilaudid) 0.5 mg PRN Q10MIN PRN IV SEV PAIN, Second choice; Start 04/17/17 at 11:00; Stop 04/18/17 at 10:59 Prochlorperazine Edisylate (Compazine) 5 mg PACU PRN PRN IV NAUSEA, MRX1; Start 04/17/17 at 11:00; Stop 04/18/17 at 10:59 Active Scripts Active Reported Fluocinonide 15 Gm Cream..g. 1 Yana TP BID Liothyronine Sodium 5 Mcg Tablet 5 Mcg PO Levothyroxine Sodium 75 Mcg Tablet 75 Mcg PO DAILYAC Losartan Potassium 100 Mg Tablet 100 Mg PO DAILY Xanax (Alprazolam) 0.5 Mg Tablet 1 Tab PO QHS Vitals/I & O Vital Sign - Last 24 Hours 10/2/17 10/2/17 10/2/17 10/2/17 13:20 13:55 14:36 15:06 Pulse 97 95 92 Resp 19 18 20 20 B/P (MAP) 152/74 (100) 146/91 (109) 153/74 (100) Pulse Ox 96 96 96 O2 Delivery Room Air Room Air Room Air Room Air 04/16/17 04/16/17 04/16/17 04/16/17 16:16 16:45 16:59 17:59 Temp 98.7 98.7 Pulse 95 99 Resp 20 16 16 16 B/P (MAP) 152/80 (104) 116/80 (92) Pulse Ox 96 95 O2 Delivery Room Air Room Air Room Air Room Air 04/16/17 04/16/17 04/16/17 04/16/17 18:30 18:59 19:51 20:00 Temp 98.2 98.2 Pulse 93 Resp 16 18 B/P (MAP) 101/55 (70) Pulse Ox 93 O2 Delivery Room Air Room Air Room Air Room Air 04/16/17 04/16/17 04/17/17 04/17/17 21:52 23:22 03:29 03:33 Temp 98.2 98.5 98.2 98.5 Pulse 88 84 Resp 16 18 18 16 B/P (MAP) 102/56 (71) 118/63 (81) Pulse Ox 93 93 97 97 O2 Delivery Room Air Room Air Room Air Room Air 04/17/17 04/17/17 04/17/17 04/17/17 06:02 06:32 07:00 08:00 Temp 98.4 98.4 Pulse 77 Resp 16 16 16 B/P (MAP) 120/68 (85) Pulse Ox 97 97 93 O2 Delivery Room Air Room Air Room Air Room Air 04/17/17 04/17/17 04/17/17 08:44 11:00 12:51 Temp 98.6 98.6 Pulse 77 87 Resp 16 B/P (MAP) 120/68 100/56 (71) Pulse Ox 93 93 O2 Delivery Room Air Room Air HENRY SOTO MD Apr 17, 2017 12:56
[2017-04-17] MEDS ORDERED: ROCURONIUM 100 MG/10 ML VIAL. ONE (15:42)
[2017-04-17] MEDS ORDERED: BUPIVACAINE MPF 0.25% 30 ML VIAL. ONE (16:23)
[2017-04-17] MEDS ORDERED: BUPIVACAINE-EPI 0.25%-1:200000 MPF 30 ML VIAL. ONE (16:25)
[2017-04-17] MEDS ORDERED: fentaNYL PF VIAL 100 MCG/2 ML VIAL ONE ×2 (17:26→20:57)
[2017-04-17] MEDS ORDERED: PROPOFOL 20 ML IV ONE (18:21)
[2017-04-17] MEDS ORDERED: LIDOCAINE 2% PF Vial for OR 5 ML VIAL. ONE (18:21)
[2017-04-17] MEDS ORDERED: ONDANSETRON PF 4 MG/2 ML VIAL. ONE (18:21)
[2017-04-17] MEDS ORDERED: NEOSTIGMINE METHYLSULFATE 5 MG/5 ML SYRINGE. ONE (18:22)
[2017-04-17] MEDS ORDERED: PHENYLEPHRINE in 0.9% NACL PF 1 MG/10 ML DISP.SYRIN. IV ONE (19:14)
[2017-04-17] MEDS ORDERED: THROMBIN TOPICAL 20,000 UNIT SPRAY.SYRN KIT TP ONE (19:43)
--- NOTE | 2017-04-17 22:07 | PDOC ---
BRIEF OPERATIVE NOTE Date: Apr 17, 2017 Pre-Op Diagnosis left humeral shaft fracture Post-Op Diagnosis same Procedure Performed orif left humeral shaft fracture Surgeon Victoriano Ivy MD Horticultural Nursery Assistant none Anesthesia Type: General Blood Loss 500 cc IV Fluid 1 u prbc Specimens Obtained none Findings Severely displaced with a lot of soft tissue damage. humeral head was grossly deformed Complications none OPerative Note Nereyda 14 hole proximal humerus locking plate, 3.5 mm interfragmentary screw, 2 kinamed cables. Hv in deeply. Closed with 1, 2-0 vicryl and 3-0 monocryl. thrombin spray gel VICTORIANO IVY MD Apr 17, 2017 22:07
[2017-04-17 22:08] LABS: HEMATOCRIT 31.8 % (36.0-47.0); HEMOGLOBIN 10.8 g/dL (12.0-15.5)
[2017-04-17] MEDS: fentaNYL PF VIAL 100 MCG/2 ML VIAL IV PRN ×2 (22:21→22:36)
--- NOTE | 2017-04-17 22:25 | PDOC4 ---
Operative Note Operative Note Date of Procedure: 04/17/2017 Preoperative Diagnosis: Left humeral shaft fracture Postoperative Diagnosis: same Operation Performed: 1. Open reduction Internal Fixation left humeral shaft Fracture, CPT 25711 Surgeon: Victoriano Ivy MD Personnel Interviewer: none Anesthesia: General Estimated Blood Loss: 500 cc Implants: Nereyda 14 hole Proximal Humerus locking plate, 2 kinamed supercables Surgical Indication: The patient is an 86 year old right-hand dominant female who fell using her walker yesterday sustaining a grossly displaced humeral shaft fracture. I discussed nonoperative versus operative treatment with the patient and her family and they elected to under go operative fixation of the fracture. . A detailed explanation of the proposed operative procedure was provided to the patient. The patient and her family understand the risks of surgery include but are not limited to nerve injury, infection, DVT, , nonunion, malunion, and failure of fixation. After having understood this procedure, the patient signed consent and was scheduled. She presents now for the above stated procedure after the risks and benefits were explained in the hospital. Description of Procedure: The patient was identified, marked, and the procedure was reconfirmed by myself prior to taking them to the operating room. A timeout was performed. IV antibiotics were given preoperatively. The patient was positioned appropriately supine with a hand table and underwent adequate general anesthesia. The left arm was prepped and draped in a standard surgical fashion. Prior to making an incision, the consent was reviewed for a final time. An extensile deltopectoral into the anterolateral approach was made to the humerus. Careful dissection down to soft tissue was performed. The biceps was retracted medially and the musculocutaneous nerve was visualized and protected. The superior brachialis had been torn by the fracture, so the muscle was further split longitudinally to preserve the innervation and expose the distal humeral shaft. The fracture was located. The fracture fragments were exposed and fracture hematoma was debrided, maintaining soft tissue attachments to the fragments. The fracture was in two large pieces distally, but minimally displaced proximally. She had a severe deformity of her humeral head and neck where her humerus has been articulating on the glenoid for a long time. This made it difficult to maneuver her arm. The fracture edges were gently debrided back to remove interposing soft tissue and fracture hematoma. The fractures were reduced using bone reduction forceps. One lag screw was placed distally, and two kinamed supercables were used to maintain the fracture reduction. A 14 hole plate was applied to the lateral aspect of the bicipital groove and centered distally on the shaft of the humerus. The plate was fixed proximally first with a non-locking screw. Then the plate was pulled down to bone just distal to the fracture utilizing a cortical screw. The plate was filled distally with locking and nonlocking screws. The patient actually had very good bone quality for her age. The fracture was bridged and the proximal plate was filled with locking screws, utilizing fluroscopy to check the screw placement and final length. The radial nerve was protected during this process. Excellent plate apposition and compression was obtained and there was no gapping noted circumferentially. The plate position, screw length, and fracture reduction were then confirmed utilizing fluoroscopy. The wound was irrigated thoroughly, and the biceps fascia was closed with figure of eight 1- vicryl sutures. Each layer was irrigated prior to closure. A medium hemovac was placed deeply. Hemostasis was obtained and thrombin gel spray was utilized. The subcutaneous tissues were closed in layers with 2-0 Vicryl and 3-0 monocryl sutures and a prineo dressing. Sterile dressings and a sling were applied. Disposition: The patient was transferred to the bed and taken to the recovery room awake, alert, and in stable condition. Complications: None Post-operative Plan: She can use her left arm for activities of daily living, weight bearing as tolerated. She can perform hand, wrist, and elbow exercises. VICTORIANO IVY MD Apr 17, 2017 22:25
[2017-04-17] MEDS: ALPRAZolam 0.5 MG TABLET PO SCH (23:19)
[2017-04-18] VITALS (9 sets, daily range): BP systolic 86–144; BP diastolic 41–69
[2017-04-18] MEDS: MORPHINE SULFATE 4 MG/ML DISP.SYRIN. IV PRN ×2 (01:26→10:36)
[2017-04-18] MEDS: HYDROcodone/APAP 5/325MG 1 TAB TABLET PO PRN ×3 (04:47→19:53)
[2017-04-18 06:06] LABS: BASO % 0 % (0-3); EOS % 0 % (0-3); HEMOGLOBIN 10.1 g/dL (12.0-15.5); LYMPH # 0.5 x10^3/uL (1.0-4.8); LYMPH % 9 % (24-48); MEAN CORPUSCULAR HEMOGLOBIN 30 pg (25-35); MEAN CORPUSCULAR HGB CONC 35 g/dL (31-37); MEAN CORPUSCULAR VOLUME 86 fL (79-100); MONO % 8 % (0-9); NEUT % 83 % (31-73); PLATELET COUNT 165 x10^3/uL (140-400); RED BLOOD COUNT 3.39 x10^6/uL (3.50-5.40); RED CELL DISTRIBUTION WIDTH 14.5 % (11.5-14.5)
[2017-04-18 06:18] LABS: CALCIUM 7.6 mg/dL (8.5-10.1); CREATININE 0.5 mg/dL (0.6-1.0); GFR 116.4; POTASSIUM 3.5 mmol/L (3.5-5.1)
[2017-04-18] MEDS: HEPARIN PF for SUB-Q USE 5,000 UNIT/0.5 ML VIAL. SQ SCH ×3 (06:26→21:02)
[2017-04-18] MEDS: LEVOTHYROXINE 75 MCG TABLET PO SCH (06:27)
[2017-04-18] MEDS: LIOTHYRONINE 5 MCG TABLET. PO SCH (08:44)
[2017-04-18] MEDS: LOSARTAN POTASSIUM 50 MG TABLET. PO SCH (08:45)
--- NOTE | 2017-04-18 08:58 | RAD ---
Left humerus, 2 views, 04/17/2017: History: Postop evaluation Comparison is made to a study from 04/16/2017. A metallic plate with multiple screws has been placed transfixing the fractures of the proximal and mid left humeral shaft. Two additional small fixation devices are present at the mid humeral level. The fracture fragments are in good position for healing. Severe underlying degenerative changes at the left glenohumeral articulation are again noted. There are surgical clips projected over the left shoulder medially. A surgical drain is evident at the operative site. There is no evidence of a retained surgical needle, instrument or radiopaque sponge. IMPRESSION: Satisfactory reduction and internal fixation of the mid and proximal humeral fractures.
--- NOTE | 2017-04-18 10:04 | PDOC ---
PROGRESS NOTES Subjective Subjective No problems overnight. Pain is controlled. Getting up with therapy. Objective Vital Signs Vital Signs Date Time Temp Pulse Resp B/P (MAP) Pulse Ox O2 Delivery O2 Flow Rate FiO2 04/18/17 08:45 100 101/41 04/18/17 07:00 98.3 18 96 Room Air 98.3 04/18/17 06:00 2.0 Physical Exam Postoperative dressing dry and intact. Sling to left arm. Hemovac drain in place. Motor and sensory function intact in axillary, radial, median, and ulnar nerve distribution. No evidence of neurovascular injury. Geriatric Assistant strength intact. Labs Laboratory Tests Test 04/16/17 13:50 04/16/17 18:40 04/17/17 03:55 04/17/17 22:02 White Blood Count 7.5 x10^3/uL (4.0-11.0) 3.5 x10^3/uL (4.0-11.0) Red Blood Count 3.99 x10^6/uL (3.50-5.40) 3.51 x10^6/uL (3.50-5.40) Hemoglobin 11.5 g/dL (12.0-15.5) 10.5 g/dL (12.0-15.5) 10.8 g/dL (12.0-15.5) Hematocrit 33.7 % (36.0-47.0) 29.9 % (36.0-47.0) 31.8 % (36.0-47.0) Mean Corpuscular Volume 84 fL (79-100) 85 fL (79-100) Mean Corpuscular Hemoglobin 29 pg (25-35) 30 pg (25-35) Mean Corpuscular Hemoglobin Concent 34 g/dL (31-37) 35 g/dL (31-37) Red Cell Distribution Width 13.9 % (11.5-14.5) 14.3 % (11.5-14.5) Platelet Count 217 x10^3/uL (140-400) 202 x10^3/uL (140-400) Neutrophils (%) (Auto) 86 % (31-73) 64 % (31-73) Lymphocytes (%) (Auto) 8 % (24-48) 25 % (24-48) Monocytes (%) (Auto) 5 % (0-9) 9 % (0-9) Eosinophils (%) (Auto) 0 % (0-3) 2 % (0-3) Basophils (%) (Auto) 1 % (0-3) 0 % (0-3) Neutrophils # (Auto) 6.5 x10^3uL (1.8-7.7) 2.2 x10^3uL (1.8-7.7) Lymphocytes # (Auto) 0.6 x10^3/uL (1.0-4.8) 0.9 x10^3/uL (1.0-4.8) Monocytes # (Auto) 0.4 x10^3/uL (0.0-1.1) 0.3 x10^3/uL (0.0-1.1) Eosinophils # (Auto) 0.0 x10^3/uL (0.0-0.7) 0.1 x10^3/uL (0.0-0.7) Basophils # (Auto) 0.0 x10^3/uL (0.0-0.2) 0.0 x10^3/uL (0.0-0.2) Sodium Level 135 mmol/L (136-145) 135 mmol/L (136-145) Potassium Level 3.7 mmol/L (3.5-5.1) 3.7 mmol/L (3.5-5.1) Chloride Level 100 mmol/L (98-107) 101 mmol/L (98-107) Carbon Dioxide Level 26 mmol/L (21-32) 28 mmol/L (21-32) Anion Gap 9 (6-14) 6 (6-14) Blood Urea Nitrogen 15 mg/dL (7-20) 16 mg/dL (7-20) Creatinine 0.5 mg/dL (0.6-1.0) 0.6 mg/dL (0.6-1.0) Estimated GFR (Cockcroft-Gault) 116.4 94.3 BUN/Creatinine Ratio 30 (6-20) Glucose Level 125 mg/dL (70-99) 102 mg/dL (70-99) Calcium Level 8.8 mg/dL (8.5-10.1) 7.8 mg/dL (8.5-10.1) Total Bilirubin 0.5 mg/dL (0.2-1.0) Aspartate Amino Transf (AST/SGOT) 22 U/L (15-37) Alanine Aminotransferase (ALT/SGPT) 13 U/L (14-59) Alkaline Phosphatase 89 U/L (46-116) Total Protein 6.6 g/dL (6.4-8.2) Albumin 3.6 g/dL (3.4-5.0) Albumin/Globulin Ratio 1.2 (1.0-1.7) Urine Collection Type Unknown Urine Color Yellow Urine Clarity Clear Urine pH 6.5 Urine Specific [place] 1.020 Urine Protein Negative mg/dL (NEG-TRACE) Urine Glucose (UA) Negative mg/dL (NEG) Urine Ketones (Stick) Trace mg/dL (NEG) Urine Blood Negative (NEG) Urine Nitrite Negative (NEG) Urine Bilirubin Negative (NEG) Urine Urobilinogen Dipstick 0.2 mg/dL (0.2 mg/dL) Urine Leukocyte Esterase Negative (NEG) Urine RBC Occ /HPF (0-2) Urine WBC Occ /HPF (0-4) Urine Squamous Epithelial Cells Few /LPF Urine Bacteria Few /HPF (0-FEW) Urine Hyaline Casts Few /HPF 25-Hydroxy Vitamin D Total 21.9 ng/mL (30.0-100.0) Test 04/18/17 04:35 White Blood Count 6.0 x10^3/uL (4.0-11.0) Red Blood Count 3.39 x10^6/uL (3.50-5.40) Hemoglobin 10.1 g/dL (12.0-15.5) Hematocrit 29.0 % (36.0-47.0) Mean Corpuscular Volume 86 fL (79-100) Mean Corpuscular Hemoglobin 30 pg (25-35) Mean Corpuscular Hemoglobin Concent 35 g/dL (31-37) Red Cell Distribution Width 14.5 % (11.5-14.5) Platelet Count 165 x10^3/uL (140-400) Neutrophils (%) (Auto) 83 % (31-73) Lymphocytes (%) (Auto) 9 % (24-48) Monocytes (%) (Auto) 8 % (0-9) Eosinophils (%) (Auto) 0 % (0-3) Basophils (%) (Auto) 0 % (0-3) Neutrophils # (Auto) 5.0 x10^3uL (1.8-7.7) Lymphocytes # (Auto) 0.5 x10^3/uL (1.0-4.8) Monocytes # (Auto) 0.5 x10^3/uL (0.0-1.1) Eosinophils # (Auto) 0.0 x10^3/uL (0.0-0.7) Basophils # (Auto) 0.0 x10^3/uL (0.0-0.2) Sodium Level 137 mmol/L (136-145) Potassium Level 3.5 mmol/L (3.5-5.1) Chloride Level 101 mmol/L (98-107) Carbon Dioxide Level 27 mmol/L (21-32) Anion Gap 9 (6-14) Blood Urea Nitrogen 11 mg/dL (7-20) Creatinine 0.5 mg/dL (0.6-1.0) Estimated GFR (Cockcroft-Gault) 116.4 Glucose Level 152 mg/dL (70-99) Calcium Level 7.6 mg/dL (8.5-10.1) Laboratory Tests Test 04/17/17 22:02 04/18/17 04:35 Hemoglobin 10.8 g/dL (12.0-15.5) 10.1 g/dL (12.0-15.5) Hematocrit 31.8 % (36.0-47.0) 29.0 % (36.0-47.0) White Blood Count 6.0 x10^3/uL (4.0-11.0) Red Blood Count 3.39 x10^6/uL (3.50-5.40) Mean Corpuscular Volume 86 fL (79-100) Mean Corpuscular Hemoglobin 30 pg (25-35) Mean Corpuscular Hemoglobin Concent 35 g/dL (31-37) Red Cell Distribution Width 14.5 % (11.5-14.5) Platelet Count 165 x10^3/uL (140-400) Neutrophils (%) (Auto) 83 % (31-73) Lymphocytes (%) (Auto) 9 % (24-48) Monocytes (%) (Auto) 8 % (0-9) Eosinophils (%) (Auto) 0 % (0-3) Basophils (%) (Auto) 0 % (0-3) Neutrophils # (Auto) 5.0 x10^3uL (1.8-7.7) Lymphocytes # (Auto) 0.5 x10^3/uL (1.0-4.8) Monocytes # (Auto) 0.5 x10^3/uL (0.0-1.1) Eosinophils # (Auto) 0.0 x10^3/uL (0.0-0.7) Basophils # (Auto) 0.0 x10^3/uL (0.0-0.2) Sodium Level 137 mmol/L (136-145) Potassium Level 3.5 mmol/L (3.5-5.1) Chloride Level 101 mmol/L (98-107) Carbon Dioxide Level 27 mmol/L (21-32) Anion Gap 9 (6-14) Blood Urea Nitrogen 11 mg/dL (7-20) Creatinine 0.5 mg/dL (0.6-1.0) Estimated GFR (Cockcroft-Gault) 116.4 Glucose Level 152 mg/dL (70-99) Calcium Level 7.6 mg/dL (8.5-10.1) Assessment Assessment POD #1 left humerus ORIF Problems: Plan Plan of Care Continue POC including DVT ppx and therapy. Getting up with therapy today. Hgb stable at 10.1 this morning. NAYAN MANZO Apr 18, 2017 10:04
[2017-04-18] MEDS: CHOLECALCIFEROL (VITAMIN D3) 1,000 UNIT TABLET PO SCH (10:29)
[2017-04-18] MEDS ORDERED: IV NORMAL SALINE 1000ML BAG 1,000 ML IV ONE (11:30)
--- NOTE | 2017-04-18 13:48 | PDOC ---
PROGRESS NOTES Chief Complaint Chief Complaint left shoulder traumatic displaced humerus shaft fx s/p ORIF 04/17 htn hypothyroidism post thyroidectomy non hodgkins lymphoma, stable h/o DVT no AC OA h/o IVC filter valve dz, likely , stable acute blood loss anemia expected from sx, s/p 1u PRBC transfusion in OR vitd Deficiency plan: fu with ortho,sx 04/17 no contraindication for sx, low-moderate risk for post sx complication dc losartan given low BP, 1L bolus check vitd, low ,add po dvt ppx post sx PTOT post sx SW consult for rehab History of Present Illness History of Present Illness ROS: no fever, chills, sob or chest pain left shoulder pain eats ok low BP today, sx 04/17, EBL 500cc got 1u PRBC Vitals Vitals Vital Signs Date Time Temp Pulse Resp B/P (MAP) Pulse Ox O2 Delivery O2 Flow Rate FiO2 04/18/17 13:11 96 Nasal Cannula 2.0 04/18/17 11:00 98.6 109 18 86/42 (57) 98.6 Physical Exam General: Alert, Oriented X3, Cooperative, No acute distress Heart: Regular rate, Normal S1, Normal S2 Lungs: Clear Abdomen: Normal bowel sounds, Soft, No tenderness Extremities: No clubbing, No cyanosis, Normal pulses, Other (left shoulder some bruise from fall, some swelling at arm and tenderness) Labs LABS Laboratory Tests Test 04/17/17 22:02 04/18/17 04:35 Hemoglobin 10.8 g/dL (12.0-15.5) 10.1 g/dL (12.0-15.5) Hematocrit 31.8 % (36.0-47.0) 29.0 % (36.0-47.0) White Blood Count 6.0 x10^3/uL (4.0-11.0) Red Blood Count 3.39 x10^6/uL (3.50-5.40) Mean Corpuscular Volume 86 fL (79-100) Mean Corpuscular Hemoglobin 30 pg (25-35) Mean Corpuscular Hemoglobin Concent 35 g/dL (31-37) Red Cell Distribution Width 14.5 % (11.5-14.5) Platelet Count 165 x10^3/uL (140-400) Neutrophils (%) (Auto) 83 % (31-73) Lymphocytes (%) (Auto) 9 % (24-48) Monocytes (%) (Auto) 8 % (0-9) Eosinophils (%) (Auto) 0 % (0-3) Basophils (%) (Auto) 0 % (0-3) Neutrophils # (Auto) 5.0 x10^3uL (1.8-7.7) Lymphocytes # (Auto) 0.5 x10^3/uL (1.0-4.8) Monocytes # (Auto) 0.5 x10^3/uL (0.0-1.1) Eosinophils # (Auto) 0.0 x10^3/uL (0.0-0.7) Basophils # (Auto) 0.0 x10^3/uL (0.0-0.2) Sodium Level 137 mmol/L (136-145) Potassium Level 3.5 mmol/L (3.5-5.1) Chloride Level 101 mmol/L (98-107) Carbon Dioxide Level 27 mmol/L (21-32) Anion Gap 9 (6-14) Blood Urea Nitrogen 11 mg/dL (7-20) Creatinine 0.5 mg/dL (0.6-1.0) Estimated GFR (Cockcroft-Gault) 116.4 Glucose Level 152 mg/dL (70-99) Calcium Level 7.6 mg/dL (8.5-10.1) Comment Review of Relevant I have reviewed the following items kendrick (where applicable) has been applied. Labs Laboratory Tests Test 04/16/17 13:50 04/16/17 18:40 04/17/17 03:55 04/17/17 22:02 White Blood Count 7.5 x10^3/uL (4.0-11.0) 3.5 x10^3/uL (4.0-11.0) Red Blood Count 3.99 x10^6/uL (3.50-5.40) 3.51 x10^6/uL (3.50-5.40) Hemoglobin 11.5 g/dL (12.0-15.5) 10.5 g/dL (12.0-15.5) 10.8 g/dL (12.0-15.5) Hematocrit 33.7 % (36.0-47.0) 29.9 % (36.0-47.0) 31.8 % (36.0-47.0) Mean Corpuscular Volume 84 fL (79-100) 85 fL (79-100) Mean Corpuscular Hemoglobin 29 pg (25-35) 30 pg (25-35) Mean Corpuscular Hemoglobin Concent 34 g/dL (31-37) 35 g/dL (31-37) Red Cell Distribution Width 13.9 % (11.5-14.5) 14.3 % (11.5-14.5) Platelet Count 217 x10^3/uL (140-400) 202 x10^3/uL (140-400) Neutrophils (%) (Auto) 86 % (31-73) 64 % (31-73) Lymphocytes (%) (Auto) 8 % (24-48) 25 % (24-48) Monocytes (%) (Auto) 5 % (0-9) 9 % (0-9) Eosinophils (%) (Auto) 0 % (0-3) 2 % (0-3) Basophils (%) (Auto) 1 % (0-3) 0 % (0-3) Neutrophils # (Auto) 6.5 x10^3uL (1.8-7.7) 2.2 x10^3uL (1.8-7.7) Lymphocytes # (Auto) 0.6 x10^3/uL (1.0-4.8) 0.9 x10^3/uL (1.0-4.8) Monocytes # (Auto) 0.4 x10^3/uL (0.0-1.1) 0.3 x10^3/uL (0.0-1.1) Eosinophils # (Auto) 0.0 x10^3/uL (0.0-0.7) 0.1 x10^3/uL (0.0-0.7) Basophils # (Auto) 0.0 x10^3/uL (0.0-0.2) 0.0 x10^3/uL (0.0-0.2) Sodium Level 135 mmol/L (136-145) 135 mmol/L (136-145) Potassium Level 3.7 mmol/L (3.5-5.1) 3.7 mmol/L (3.5-5.1) Chloride Level 100 mmol/L (98-107) 101 mmol/L (98-107) Carbon Dioxide Level 26 mmol/L (21-32) 28 mmol/L (21-32) Anion Gap 9 (6-14) 6 (6-14) Blood Urea Nitrogen 15 mg/dL (7-20) 16 mg/dL (7-20) Creatinine 0.5 mg/dL (0.6-1.0) 0.6 mg/dL (0.6-1.0) Estimated GFR (Cockcroft-Gault) 116.4 94.3 BUN/Creatinine Ratio 30 (6-20) Glucose Level 125 mg/dL (70-99) 102 mg/dL (70-99) Calcium Level 8.8 mg/dL (8.5-10.1) 7.8 mg/dL (8.5-10.1) Total Bilirubin 0.5 mg/dL (0.2-1.0) Aspartate Amino Transf (AST/SGOT) 22 U/L (15-37) Alanine Aminotransferase (ALT/SGPT) 13 U/L (14-59) Alkaline Phosphatase 89 U/L (46-116) Total Protein 6.6 g/dL (6.4-8.2) Albumin 3.6 g/dL (3.4-5.0) Albumin/Globulin Ratio 1.2 (1.0-1.7) Urine Collection Type Unknown Urine Color Yellow Urine Clarity Clear Urine pH 6.5 Urine Specific Odell 1.020 Urine Protein Negative mg/dL (NEG-TRACE) Urine Glucose (UA) Negative mg/dL (NEG) Urine Ketones (Stick) Trace mg/dL (NEG) Urine Blood Negative (NEG) Urine Nitrite Negative (NEG) Urine Bilirubin Negative (NEG) Urine Urobilinogen Dipstick 0.2 mg/dL (0.2 mg/dL) Urine Leukocyte Esterase Negative (NEG) Urine RBC Occ /HPF (0-2) Urine WBC Occ /HPF (0-4) Urine Squamous Epithelial Cells Few /LPF Urine Bacteria Few /HPF (0-FEW) Urine Hyaline Casts Few /HPF 25-Hydroxy Vitamin D Total 21.9 ng/mL (30.0-100.0) Test 04/18/17 04:35 White Blood Count 6.0 x10^3/uL (4.0-11.0) Red Blood Count 3.39 x10^6/uL (3.50-5.40) Hemoglobin 10.1 g/dL (12.0-15.5) Hematocrit 29.0 % (36.0-47.0) Mean Corpuscular Volume 86 fL (79-100) Mean Corpuscular Hemoglobin 30 pg (25-35) Mean Corpuscular Hemoglobin Concent 35 g/dL (31-37) Red Cell Distribution Width 14.5 % (11.5-14.5) Platelet Count 165 x10^3/uL (140-400) Neutrophils (%) (Auto) 83 % (31-73) Lymphocytes (%) (Auto) 9 % (24-48) Monocytes (%) (Auto) 8 % (0-9) Eosinophils (%) (Auto) 0 % (0-3) Basophils (%) (Auto) 0 % (0-3) Neutrophils # (Auto) 5.0 x10^3uL (1.8-7.7) Lymphocytes # (Auto) 0.5 x10^3/uL (1.0-4.8) Monocytes # (Auto) 0.5 x10^3/uL (0.0-1.1) Eosinophils # (Auto) 0.0 x10^3/uL (0.0-0.7) Basophils # (Auto) 0.0 x10^3/uL (0.0-0.2) Sodium Level 137 mmol/L (136-145) Potassium Level 3.5 mmol/L (3.5-5.1) Chloride Level 101 mmol/L (98-107) Carbon Dioxide Level 27 mmol/L (21-32) Anion Gap 9 (6-14) Blood Urea Nitrogen 11 mg/dL (7-20) Creatinine 0.5 mg/dL (0.6-1.0) Estimated GFR (Cockcroft-Gault) 116.4 Glucose Level 152 mg/dL (70-99) Calcium Level 7.6 mg/dL (8.5-10.1) Laboratory Tests Test 04/17/17 22:02 04/18/17 04:35 Hemoglobin 10.8 g/dL (12.0-15.5) 10.1 g/dL (12.0-15.5) Hematocrit 31.8 % (36.0-47.0) 29.0 % (36.0-47.0) White Blood Count 6.0 x10^3/uL (4.0-11.0) Red Blood Count 3.39 x10^6/uL (3.50-5.40) Mean Corpuscular Volume 86 fL (79-100) Mean Corpuscular Hemoglobin 30 pg (25-35) Mean Corpuscular Hemoglobin Concent 35 g/dL (31-37) Red Cell Distribution Width 14.5 % (11.5-14.5) Platelet Count 165 x10^3/uL (140-400) Neutrophils (%) (Auto) 83 % (31-73) Lymphocytes (%) (Auto) 9 % (24-48) Monocytes (%) (Auto) 8 % (0-9) Eosinophils (%) (Auto) 0 % (0-3) Basophils (%) (Auto) 0 % (0-3) Neutrophils # (Auto) 5.0 x10^3uL (1.8-7.7) Lymphocytes # (Auto) 0.5 x10^3/uL (1.0-4.8) Monocytes # (Auto) 0.5 x10^3/uL (0.0-1.1) Eosinophils # (Auto) 0.0 x10^3/uL (0.0-0.7) Basophils # (Auto) 0.0 x10^3/uL (0.0-0.2) Sodium Level 137 mmol/L (136-145) Potassium Level 3.5 mmol/L (3.5-5.1) Chloride Level 101 mmol/L (98-107) Carbon Dioxide Level 27 mmol/L (21-32) Anion Gap 9 (6-14) Blood Urea Nitrogen 11 mg/dL (7-20) Creatinine 0.5 mg/dL (0.6-1.0) Estimated GFR (Cockcroft-Gault) 116.4 Glucose Level 152 mg/dL (70-99) Calcium Level 7.6 mg/dL (8.5-10.1) Medications Current Medications Fentanyl Citrate (Fentanyl 2ml Vial) 50 mcg 1X ONCE IV Last administered on t 11:40; Start 04/16/17 at 11:30; Stop 04/16/17 at 11:31; Status DC Morphine Sulfate 2 mg 1X ONCE IV Last administered on 04/16/17 13:55; Start 04/16/17 at 13:45; Stop 04/16/17 at 13:46; Status DC Morphine Sulfate 2 mg PRN Q2HR PRN IV PAIN Last administered on 04/17/17 12:51 ; Start 04/16/17 at 14:15; Stop 04/17/17 at 14:14; Status DC Alprazolam (Xanax) 0.5 mg QHS PO Last administered on 04/17/17 23:19; Start 04/16/17 at 21:00 Levothyroxine Sodium (Synthroid) 75 mcg DAILYAC PO Last administered on 06:27; Start 04/17/17 at 07:30 Liothyronine Sodium (Cytomel) 5 mcg DAILY PO Last administered on 04/18/17 08: 44; Start 04/17/17 at 09:00 Losartan Potassium (Cozaar) 100 mg DAILY PO Last administered on 04/18/17 08: 45; Start 04/17/17 at 09:00; Stop 04/18/17 at 11:22; Status DC Acetaminophen (Tylenol) 650 mg PRN Q6HRS PRN PO FEVER; Start 04/16/17 at 17:15 Ondansetron HCl (Zofran) 4 mg PRN Q6HRS PRN IV NAUSEA/VOMITING Last administered on 04/18/17 04:53; Start 04/16/17 at 17:15 Morphine Sulfate 2 mg PRN Q2HR PRN IV PAIN Last administered on 04/18/17 10:36 ; Start 04/16/17 at 17:15 Tramadol HCl (Ultram) 50 mg PRN Q6HRS PRN PO PAIN; Start 04/16/17 at 17:15 Hydralazine HCl (Apresoline) 10 mg PRN Q4HRS PRN IVP ELEVATED BP, SEE COMMENTS ; Start 04/16/17 at 17:15 Docusate Sodium (Colace) 100 mg PRN DAILY PRN PO CONSTIPATION Last administered on 04/17/17 08:44; Start 04/16/17 at 17:15 Acetaminophen/ Hydrocodone Bitart (Lortab 5/325) 1 tab PRN Q6HRS PRN PO PAIN MILD TO MOD Last administered on 04/18/17 13:11; Start 04/16/17 at 18:00 Ondansetron HCl (Zofran) 4 mg PRN Q6HRS PRN IV NAUSEA/VOMITING; Start 04/17/17 at 11:00; Stop 04/18/17 at 10:59; Status DC Fentanyl Citrate (Fentanyl 2ml Vial) 25 mcg PRN Q5MIN PRN IV MILD PAIN; Start 04/17/17 at 11:00; Stop 04/18/17 at 10:59; Status DC Fentanyl Citrate (Fentanyl 2ml Vial) 50 mcg PRN Q5MIN PRN IV MODERATE PAIN Last administered on 04/17/17 22:36; Start 04/17/17 at 11:00; Stop 04/18/17 at 10:59; Status DC Morphine Sulfate 1 mg PRN Q10MIN PRN IV SEVERE PAIN; Start 04/17/17 at 11:00; Stop 04/18/17 at 12:26; Status DC Ringer's Solution 1,000 ml @ 30 mls/hr Q24H IV Last administered on 04/17/17 22:36; Start 04/17/17 at 10:47; Stop 04/17/17 at 22:46; Status DC Lidocaine HCl (Xylocaine-Mpf 1% Vial) 2 ml 1X PRN PRN ID IV START; Start at 11:00; Stop 04/18/17 at 10:59; Status DC Hydromorphone HCl (Dilaudid) 0.5 mg PRN Q10MIN PRN IV SEV PAIN, Second choice; Start 04/17/17 at 11:00; Stop 04/18/17 at 10:59; Status DC Prochlorperazine Edisylate (Compazine) 5 mg PACU PRN PRN IV NAUSEA, MRX1; Start 04/17/17 at 11:00; Stop 04/18/17 at 10:59; Status DC Rocuronium [place] (Zemuron) 100 mg STK-MED ONCE .ROUTE ; Start 04/17/17 at 15: 42; Stop 04/17/17 at 15:43; Status DC Cefazolin Sodium 2 gm/Sodium Chloride 100 ml @ 200 mls/hr 1X PREOP IV Last administered on 10/3/17at 21:09; Start 04/17/17 at 18:00 Cefazolin Sodium/ Dextrose 50 ml @ As Directed STK-MED ONCE IV ; Start 04/17/17 at 17:22; Stop 04/17/17 at 17:23; Status DC Bupivacaine HCl (Sensorcaine Mpf 0.25%) 30 ml STK-MED ONCE .ROUTE ; Start at 16:23; Stop 04/17/17 at 17:24; Status DC Bupivacaine HCl/ Epinephrine Bitart (Sensorcaine-Epi 0.25%-[id number] Mpf) 30 ml STK-MED ONCE .ROUTE ; Start 04/17/17 at 16:25; Stop 04/17/17 at 17:25; Status DC Fentanyl Citrate (Fentanyl 2ml Vial) 100 mcg STK-MED ONCE .ROUTE ; Start at 17:26; Stop 04/17/17 at 17:27; Status DC Propofol 20 ml @ As Directed STK-MED ONCE IV ; Start 04/17/17 at 18:21; Stop at 18:22; Status DC Lidocaine HCl (Lidocaine Pf 2% Vial) 5 ml STK-MED ONCE .ROUTE ; Start 04/17/17 at 18:21; Stop 04/17/17 at 18:22; Status DC Ondansetron HCl (Zofran) 4 mg STK-MED ONCE .ROUTE ; Start 04/17/17 at 18:21; Stop 04/17/17 at 18:22; Status DC Neostigmine Methylsulfate 5 mg STK-MED ONCE .ROUTE ; Start 04/17/17 at 18:22; Stop 04/17/17 at 18:23; Status DC Phenylephrine HCl 1 mg STK-MED ONCE IV ; Start 04/17/17 at 19:14; Stop 04/17/17 at 19:15; Status DC Thrombin 20,000 unit STK-MED ONCE TP Last administered on 04/17/17t 20:45; Start 04/17/17 at 19:43; Stop 04/17/17 at 20:43; Status DC Fentanyl Citrate (Fentanyl 2ml Vial) 100 mcg STK-MED ONCE .ROUTE ; Start at 20:57; Stop 04/17/17 at 20:58; Status DC Cefazolin Sodium/ Dextrose 50 ml @ 100 mls/hr Q8HRS IV Last administered on 06:17; Start 04/18/17 at 06:00; Stop 04/18/17 at 14:29 Heparin Sodium (Porcine) (Heparin Sq) 5,000 unit Q8HRS SQ Last administered on 04/18/17 06:26; Start 04/18/17 at 06:00 Vitamin D (Vitamin D3) 1,000 unit DAILY PO Last administered on 04/18/17 10:29 ; Start 04/18/17 at 10:00 Sodium Chloride 1,000 ml @ 1,000 mls/hr 1X ONCE IV Last administered on 13:16; Start 04/18/17 at 11:30; Stop 04/18/17 at 12:29; Status DC Active Scripts Active Reported Fluocinonide 15 Gm Cream..g. 1 Yana TP BID Liothyronine Sodium 5 Mcg Tablet 5 Mcg PO Levothyroxine Sodium 75 Mcg Tablet 75 Mcg PO DAILYAC Losartan Potassium 100 Mg Tablet 100 Mg PO DAILY Xanax (Alprazolam) 0.5 Mg Tablet 1 Tab PO QHS Vitals/I & O Vital Sign - Last 24 Hours 04/17/17 04/17/17 04/17/17 04/17/17 15:00 16:32 21:41 21:41 Temp 99.7 102.1 98.5 99.7 102.1 98.5 Pulse 98 101 107 Resp 16 22 20 B/P (MAP) 144/72 (96) 143/74 123/74 Pulse Ox 94 99 O2 Delivery Room Air Room Air Mask Simple Mask O2 Flow Rate 10 10 04/17/17 04/17/17 04/17/17 04/17/17 21:58 22:13 22:21 22:28 Temp 98.0 98.0 Pulse 108 108 100 Resp 20 20 20 20 B/P (MAP) 147/81 137/59 115/62 Pulse Ox 98 98 99 96 O2 Delivery Simple Mask Nasal Cannula Nasal Cannula Nasal Cannula O2 Flow Rate 10 2 2.0 2 04/17/17 04/17/17 04/17/17 04/17/17 22:36 22:40 22:45 22:55 Temp 97.6 97.6 Pulse 103 Resp 20 18 20 B/P (MAP) 114/56 (75) Pulse Ox 99 96 O2 Delivery Nasal Cannula Nasal Cannula Nasal Cannula O2 Flow Rate 2.0 2.0 2.0 04/17/17 04/17/17 04/17/17 04/17/17 23:00 23:15 23:20 23:23 Pulse 109 107 Resp 18 B/P (MAP) 108/60 (76) 116/63 (80) Pulse Ox 95 95 96 96 O2 Delivery Nasal Cannula Nasal Cannula Nasal Cannula Nasal Cannula O2 Flow Rate 2.0 2.0 2.0 2.0 04/17/17 04/17/17 04/18/17 04/18/17 23:30 23:50 00:00 00:30 Pulse 102 101 100 Resp 18 B/P (MAP) 125/68 (87) 121/64 (83) 130/69 (89) Pulse Ox 94 95 97 O2 Delivery Nasal Cannula Nasal Cannula Nasal Cannula O2 Flow Rate 2.0 2.0 2.0 04/18/17 04/18/17 04/18/17 04/18/17 01:26 01:30 03:30 04:47 Temp 97.8 97.8 Pulse 104 102 Resp 18 B/P (MAP) 144/63 (90) 130/68 (88) Pulse Ox 97 97 99 99 O2 Delivery Nasal Cannula Nasal Cannula Nasal Cannula Nasal Cannula O2 Flow Rate 2.0 2.0 2.0 2.0 04/18/17 04/18/17 04/18/17 04/18/17 06:00 07:00 08:45 10:36 Temp 98.3 98.3 Pulse 100 100 Resp 18 B/P (MAP) 101/41 (61) 101/41 Pulse Ox 99 96 96 O2 Delivery Nasal Cannula Room Air Nasal Cannula O2 Flow Rate 2.0 2.0 04/18/17 04/18/17 04/18/17 11:00 12:17 13:11 Temp 98.6 98.6 Pulse 109 Resp 18 B/P (MAP) 86/42 (57) Pulse Ox 96 96 96 O2 Delivery Room Air Nasal Cannula Nasal Cannula O2 Flow Rate 2.0 2.0 HENRY SOTO MD Apr 18, 2017 13:47
[2017-04-18] MEDS: ALPRAZolam 0.5 MG TABLET PO SCH (21:03)
[2017-04-19 03:47] VITALS: BP 121/67
[2017-04-19 04:36] LABS: BASO % 0 % (0-3); EOS % 0 % (0-3); HEMOGLOBIN 8.3 g/dL (12.0-15.5); LYMPH # 0.8 x10^3/uL (1.0-4.8); LYMPH % 18 % (24-48); MEAN CORPUSCULAR HEMOGLOBIN 30 pg (25-35); MEAN CORPUSCULAR HGB CONC 35 g/dL (31-37); MEAN CORPUSCULAR VOLUME 86 fL (79-100); MONO % 10 % (0-9); NEUT % 71 % (31-73); PLATELET COUNT 132 x10^3/uL (140-400); RED BLOOD COUNT 2.81 x10^6/uL (3.50-5.40); RED CELL DISTRIBUTION WIDTH 14.8 % (11.5-14.5); WHITE BLOOD COUNT 4.6 x10^3/uL (4.0-11.0)
[2017-04-19 04:59] LABS: CALCIUM 7.1 mg/dL (8.5-10.1); CREATININE 0.5 mg/dL (0.6-1.0); GFR 116.4; POTASSIUM 3.4 mmol/L (3.5-5.1)
[2017-04-19] MEDS: HEPARIN PF for SUB-Q USE 5,000 UNIT/0.5 ML VIAL. SQ SCH ×2 (05:58→14:00)
[2017-04-19] MEDS: LEVOTHYROXINE 75 MCG TABLET PO SCH (05:59)
[2017-04-19] MEDS: HYDROcodone/APAP 5/325MG 1 TAB TABLET PO PRN ×2 (05:59→15:15)
[2017-04-19 07:00] VITALS: BP 101/59
[2017-04-19] MEDS ORDERED: ERGOCALCIFEROL (VITAMIN D2) 50,000 UNIT CAPSULE. PO SCH (09:00)
[2017-04-19] MEDS: DOCUSATE SODIUM 100 MG CAPSULE. PO PRN (09:06)
[2017-04-19] MEDS: CHOLECALCIFEROL (VITAMIN D3) 1,000 UNIT TABLET PO SCH (09:06)
[2017-04-19] MEDS: LIOTHYRONINE 5 MCG TABLET. PO SCH (09:06)
[2017-04-19 11:00] VITALS: BP 109/55
[2017-04-19] MEDS ORDERED: ERGO500027 PO (12:15)
--- NOTE | 2017-04-19 12:22 | PDOC3 ---
Discharge Summary Visit Information Date of Admission: Apr 16, 2017 Date of Discharge: Apr 19, 2017 Admitting Diagnosis Comment: left shoulder traumatic displaced humerus shaft fx s/p ORIF 04/17 htn hypothyroidism post thyroidectomy non hodgkins lymphoma, stable h/o DVT no AC OA h/o IVC filter valve dz, likely , stable acute blood loss anemia expected from sx, s/p 1u PRBC transfusion in OR vitd Deficiency HYPOTENSION Brief Hospital Course Allergies Allergies Coded Allergies Type Severity Reaction Last Updated Verified niacin Allergy Intermediate 04/17/17 Yes Vital Signs Vital Signs Date Time Temp Pulse Resp B/P (MAP) Pulse Ox O2 Delivery O2 Flow Rate FiO2 04/19/17 10:05 16 Room Air 04/19/17 07:00 101 101/59 (73) 95 04/19/17 03:47 99.0 2.0 99.0 Lab Results Laboratory Tests Test 04/17/17 22:02 04/18/17 04:35 04/19/17 03:29 Hemoglobin 10.8 g/dL (12.0-15.5) 10.1 g/dL (12.0-15.5) 8.3 g/dL (12.0-15.5) Hematocrit 31.8 % (36.0-47.0) 29.0 % (36.0-47.0) 24.0 % (36.0-47.0) White Blood Count 6.0 x10^3/uL (4.0-11.0) 4.6 x10^3/uL (4.0-11.0) Red Blood Count 3.39 x10^6/uL (3.50-5.40) 2.81 x10^6/uL (3.50-5.40) Mean Corpuscular Volume 86 fL (79-100) 86 fL (79-100) Mean Corpuscular Hemoglobin 30 pg (25-35) 30 pg (25-35) Mean Corpuscular Hemoglobin Concent 35 g/dL (31-37) 35 g/dL (31-37) Red Cell Distribution Width 14.5 % (11.5-14.5) 14.8 % (11.5-14.5) Platelet Count 165 x10^3/uL (140-400) 132 x10^3/uL (140-400) Neutrophils (%) (Auto) 83 % (31-73) 71 % (31-73) Lymphocytes (%) (Auto) 9 % (24-48) 18 % (24-48) Monocytes (%) (Auto) 8 % (0-9) 10 % (0-9) Eosinophils (%) (Auto) 0 % (0-3) 0 % (0-3) Basophils (%) (Auto) 0 % (0-3) 0 % (0-3) Neutrophils # (Auto) 5.0 x10^3uL (1.8-7.7) 3.3 x10^3uL (1.8-7.7) Lymphocytes # (Auto) 0.5 x10^3/uL (1.0-4.8) 0.8 x10^3/uL (1.0-4.8) Monocytes # (Auto) 0.5 x10^3/uL (0.0-1.1) 0.5 x10^3/uL (0.0-1.1) Eosinophils # (Auto) 0.0 x10^3/uL (0.0-0.7) 0.0 x10^3/uL (0.0-0.7) Basophils # (Auto) 0.0 x10^3/uL (0.0-0.2) 0.0 x10^3/uL (0.0-0.2) Sodium Level 137 mmol/L (136-145) 132 mmol/L (136-145) Potassium Level 3.5 mmol/L (3.5-5.1) 3.4 mmol/L (3.5-5.1) Chloride Level 101 mmol/L (98-107) 100 mmol/L (98-107) Carbon Dioxide Level 27 mmol/L (21-32) 26 mmol/L (21-32) Anion Gap 9 (6-14) 6 (6-14) Blood Urea Nitrogen 11 mg/dL (7-20) 12 mg/dL (7-20) Creatinine 0.5 mg/dL (0.6-1.0) 0.5 mg/dL (0.6-1.0) Estimated GFR (Cockcroft-Gault) 116.4 116.4 Glucose Level 152 mg/dL (70-99) 107 mg/dL (70-99) Calcium Level 7.6 mg/dL (8.5-10.1) 7.1 mg/dL (8.5-10.1) Laboratory Tests Test 04/19/17 03:29 White Blood Count 4.6 x10^3/uL (4.0-11.0) Red Blood Count 2.81 x10^6/uL (3.50-5.40) Hemoglobin 8.3 g/dL (12.0-15.5) Hematocrit 24.0 % (36.0-47.0) Mean Corpuscular Volume 86 fL (79-100) Mean Corpuscular Hemoglobin 30 pg (25-35) Mean Corpuscular Hemoglobin Concent 35 g/dL (31-37) Red Cell Distribution Width 14.8 % (11.5-14.5) Platelet Count 132 x10^3/uL (140-400) Neutrophils (%) (Auto) 71 % (31-73) Lymphocytes (%) (Auto) 18 % (24-48) Monocytes (%) (Auto) 10 % (0-9) Eosinophils (%) (Auto) 0 % (0-3) Basophils (%) (Auto) 0 % (0-3) Neutrophils # (Auto) 3.3 x10^3uL (1.8-7.7) Lymphocytes # (Auto) 0.8 x10^3/uL (1.0-4.8) Monocytes # (Auto) 0.5 x10^3/uL (0.0-1.1) Eosinophils # (Auto) 0.0 x10^3/uL (0.0-0.7) Basophils # (Auto) 0.0 x10^3/uL (0.0-0.2) Sodium Level 132 mmol/L (136-145) Potassium Level 3.4 mmol/L (3.5-5.1) Chloride Level 100 mmol/L (98-107) Carbon Dioxide Level 26 mmol/L (21-32) Anion Gap 6 (6-14) Blood Urea Nitrogen 12 mg/dL (7-20) Creatinine 0.5 mg/dL (0.6-1.0) Estimated GFR (Cockcroft-Gault) 116.4 Glucose Level 107 mg/dL (70-99) Calcium Level 7.1 mg/dL (8.5-10.1) Brief Hospital Course Ms. Mcnally is a 86 old female had a mechanical fall sustained a left humeral fx, underwent surgical procedure, Did well, but some post op swelling on that extremity likely related to tight dressing, has wound vac too. Vit D low needs ergocalciferol x 12 weeks. Awaiting wound vac and dressing instructions from ortho,ALso some chronic left forefinger straightening for yrs , cant flex, FAmily curious if any broken ligaments etc Will check xray, Otherwise ready for Pplace, Seen and examined time 32 mns dw son Full code Discharge Information Condition at Discharge: Improved, Stable Disposition/Orders: Other (snu) Scheduled Alprazolam (Xanax), 1 TAB PO QHS, (Reported) Fluocinonide (Fluocinonide), 1 ROD TP BID, (Reported) Levothyroxine Sodium (Levothyroxine Sodium), 75 MCG PO DAILYAC, (Reported) Losartan Potassium (Losartan Potassium), 100 MG PO DAILY, (Reported) Miscellaneous Medications Liothyronine Sodium (Liothyronine Sodium), 5 MCG PO, (Reported) CORETTA CHANEY MD Apr 19, 2017 12:22
[2017-04-19 15:00] VITALS: BP 120/67
--- NOTE | 2017-04-19 16:25 | PDOC ---
ORTHO PROGRESS NOTES Vitals Vital Signs Date Time Temp Pulse Resp B/P (MAP) Pulse Ox O2 Delivery O2 Flow Rate FiO2 04/19/17 15:15 16 Room Air 04/19/17 15:00 100.0 103 120/67 (84) 95 100.0 04/19/17 03:47 2.0 Labs Laboratory Tests Test 04/17/17 22:02 04/18/17 04:35 04/19/17 03:29 Hemoglobin 10.8 g/dL (12.0-15.5) 10.1 g/dL (12.0-15.5) 8.3 g/dL (12.0-15.5) Hematocrit 31.8 % (36.0-47.0) 29.0 % (36.0-47.0) 24.0 % (36.0-47.0) White Blood Count 6.0 x10^3/uL (4.0-11.0) 4.6 x10^3/uL (4.0-11.0) Red Blood Count 3.39 x10^6/uL (3.50-5.40) 2.81 x10^6/uL (3.50-5.40) Mean Corpuscular Volume 86 fL (79-100) 86 fL (79-100) Mean Corpuscular Hemoglobin 30 pg (25-35) 30 pg (25-35) Mean Corpuscular Hemoglobin Concent 35 g/dL (31-37) 35 g/dL (31-37) Red Cell Distribution Width 14.5 % (11.5-14.5) 14.8 % (11.5-14.5) Platelet Count 165 x10^3/uL (140-400) 132 x10^3/uL (140-400) Neutrophils (%) (Auto) 83 % (31-73) 71 % (31-73) Lymphocytes (%) (Auto) 9 % (24-48) 18 % (24-48) Monocytes (%) (Auto) 8 % (0-9) 10 % (0-9) Eosinophils (%) (Auto) 0 % (0-3) 0 % (0-3) Basophils (%) (Auto) 0 % (0-3) 0 % (0-3) Neutrophils # (Auto) 5.0 x10^3uL (1.8-7.7) 3.3 x10^3uL (1.8-7.7) Lymphocytes # (Auto) 0.5 x10^3/uL (1.0-4.8) 0.8 x10^3/uL (1.0-4.8) Monocytes # (Auto) 0.5 x10^3/uL (0.0-1.1) 0.5 x10^3/uL (0.0-1.1) Eosinophils # (Auto) 0.0 x10^3/uL (0.0-0.7) 0.0 x10^3/uL (0.0-0.7) Basophils # (Auto) 0.0 x10^3/uL (0.0-0.2) 0.0 x10^3/uL (0.0-0.2) Sodium Level 137 mmol/L (136-145) 132 mmol/L (136-145) Potassium Level 3.5 mmol/L (3.5-5.1) 3.4 mmol/L (3.5-5.1) Chloride Level 101 mmol/L (98-107) 100 mmol/L (98-107) Carbon Dioxide Level 27 mmol/L (21-32) 26 mmol/L (21-32) Anion Gap 9 (6-14) 6 (6-14) Blood Urea Nitrogen 11 mg/dL (7-20) 12 mg/dL (7-20) Creatinine 0.5 mg/dL (0.6-1.0) 0.5 mg/dL (0.6-1.0) Estimated GFR (Cockcroft-Gault) 116.4 116.4 Glucose Level 152 mg/dL (70-99) 107 mg/dL (70-99) Calcium Level 7.6 mg/dL (8.5-10.1) 7.1 mg/dL (8.5-10.1) Laboratory Tests Test 04/19/17 03:29 White Blood Count 4.6 x10^3/uL (4.0-11.0) Red Blood Count 2.81 x10^6/uL (3.50-5.40) Hemoglobin 8.3 g/dL (12.0-15.5) Hematocrit 24.0 % (36.0-47.0) Mean Corpuscular Volume 86 fL (79-100) Mean Corpuscular Hemoglobin 30 pg (25-35) Mean Corpuscular Hemoglobin Concent 35 g/dL (31-37) Red Cell Distribution Width 14.8 % (11.5-14.5) Platelet Count 132 x10^3/uL (140-400) Neutrophils (%) (Auto) 71 % (31-73) Lymphocytes (%) (Auto) 18 % (24-48) Monocytes (%) (Auto) 10 % (0-9) Eosinophils (%) (Auto) 0 % (0-3) Basophils (%) (Auto) 0 % (0-3) Neutrophils # (Auto) 3.3 x10^3uL (1.8-7.7) Lymphocytes # (Auto) 0.8 x10^3/uL (1.0-4.8) Monocytes # (Auto) 0.5 x10^3/uL (0.0-1.1) Eosinophils # (Auto) 0.0 x10^3/uL (0.0-0.7) Basophils # (Auto) 0.0 x10^3/uL (0.0-0.2) Sodium Level 132 mmol/L (136-145) Potassium Level 3.4 mmol/L (3.5-5.1) Chloride Level 100 mmol/L (98-107) Carbon Dioxide Level 26 mmol/L (21-32) Anion Gap 6 (6-14) Blood Urea Nitrogen 12 mg/dL (7-20) Creatinine 0.5 mg/dL (0.6-1.0) Estimated GFR (Cockcroft-Gault) 116.4 Glucose Level 107 mg/dL (70-99) Calcium Level 7.1 mg/dL (8.5-10.1) X-Rays post op xrays are reviewed. near anatomic alignment of the humeral shaft fracture. Notes Left humerus dressing and hv clean, dry, and intact. dressing removed prineo intact. Hv removed with tip intact. grossly neurovascularly intact distally. 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 2+ radial pulse. signifcant hand swelling. jae bandage removed from arm and arm and hand were rewrapped. Problems: (1) Humerus fracture Assessment and Plan The patient is POD 2 status post open reduction internal fixation left humeral shaft fracture. Her pain is decently well controlled. I removed her hemovac with the tip intact. The prineo dressing should remain intact for the next two weeks. the patient is ok to shower. weight bearing as tolerated in the left upper extremity for ambulation purposes and activities of daily living. Her vitamin D is low at 21.9. She should receive 50, 000 IU weekly and 2,000 IU daily for supplementation upon discharge. recc an isotoner glove for her left hand for compression. will follow-up in 1-2 weeks in my office. Problem Qualifiers (1) Humerus fracture: Encounter type: initial encounter Humerus Location: shaft Fracture type: closed Fracture morphology: oblique Fracture alignment: displaced Laterality: left Qualified Codes: S42.332A - Displaced oblique fracture of shaft of humerus, left arm, initial encounter for closed fracture VICTORIANO IVY MD Apr 19, 2017 16:25
== END 2017-04-19 15:45 | DRG 493 ==
LOC: ER 11:02 → ED HOLD 13:44 → 4 NORTH 16:55
PROVIDERS: ADMIT Internal Medicine; ATTEND Internal Medicine
PROC: 0PSG04Z Reposition Left Humeral Shaft with Internal Fixation Device, Open Approach (ICD-10-PCS; principal; 2017-04-17 17:30)
DX: S42.342A Displaced spiral fracture of shaft of humerus, left arm, initial encounter for closed fracture (principal); C85.90 Non-Hodgkin lymphoma, unspecified, unspecified site; I35.0 Nonrheumatic aortic (valve) stenosis; D62 Acute posthemorrhagic anemia; S42.202A Unspecified fracture of upper end of left humerus, initial encounter for closed fracture; E89.0 Postprocedural hypothyroidism; H91.90 Unspecified hearing loss, unspecified ear; I10 Essential (primary) hypertension; Z96.652 Presence of left artificial knee joint; M19.90 Unspecified osteoarthritis, unspecified site; Y93.89 Activity, other specified; Y99.8 Other external cause status; Z86.718 Personal history of other venous thrombosis and embolism; Z90.89 Acquired absence of other organs; Y92.091 Bathroom in other non-institutional residence as the place of occurrence of the external cause; Z91.09 Other allergy status, other than to drugs and biological substances; W18.39XA Other fall on same level, initial encounter; Y93.9 Activity, unspecified; Y92.002 Bathroom of unspecified non-institutional (private) residence as the place of occurrence of the external cause; E55.9 Vitamin D deficiency, unspecified
CPT/HCPCS: 36415; 73030; 73060; 73200; 76000; 80048; 80053; 81001; 82306; 85014; 85018; 85025; 86850; 86900; 86901; 86922; 96374; 96375; C1713; J0690; J2270; J2370; J2405; J2704; J2710; J3010; J3490; J7030; J7120; P9016; 97116; 97530; 97535; 99285-25; J2001

== ENCOUNTER → 2017-04-27 | Outpatient (CLI) | payer MEDICARE, OTHER ==
[2017-04-19 15:00] VITALS: BP 120/67
[~2017-04-27] MED LIST changes: +ERGO500027 PO; +FLUO15CR TP
[2017-04-27 08:08] LABS: BASO % 1 % (0-3); EOS % 3 % (0-3); HEMATOCRIT 24.9 % (36.0-47.0); HEMOGLOBIN 8.5 g/dL (12.0-15.5); LYMPH # 1.2 x10^3/uL (1.0-4.8); LYMPH % 28 % (24-48); MEAN CORPUSCULAR HEMOGLOBIN 30 pg (25-35); MEAN CORPUSCULAR HGB CONC 34 g/dL (31-37); MEAN CORPUSCULAR VOLUME 88 fL (79-100); MONO % 8 % (0-9); NEUT % 59 % (31-73); PLATELET COUNT 295 x10^3/uL (140-400); RED BLOOD COUNT 2.82 x10^6/uL (3.50-5.40); RED CELL DISTRIBUTION WIDTH 15.2 % (11.5-14.5); WHITE BLOOD COUNT 4.4 x10^3/uL (4.0-11.0)
[2017-04-27 08:32] LABS: ALBUMIN 2.6 g/dL (3.4-5.0); CALCIUM 7.6 mg/dL (8.5-10.1); CREATININE 0.6 mg/dL (0.6-1.0); GFR 94.3; POTASSIUM 4.3 mmol/L (3.5-5.1); TOTAL BILIRUBIN 0.3 mg/dL (0.2-1.0); TOTAL PROTEIN 5.2 g/dL (6.4-8.2)
[2017-04-27 09:08] LABS: % EOS 2 % (0-5); PLT ESTIMATE INCREASED (ADEQUATE)
== END | disposition home or self-care (01) ==
LOC: SPEC 07:50
PROVIDERS: ATTEND Internal Medicine
DX: I10 Essential (primary) hypertension (principal); E03.9 Hypothyroidism, unspecified; E85.9 Amyloidosis, unspecified
CPT/HCPCS: 36415; 80053; 84443; 85007; 85025